=== PATIENT | female | born 1990 | race Caucasian/White ===

== ENCOUNTER 2018-05-18 15:09 | Outpatient (CLI) | payer OTHER | END 2018-05-18 23:59 | disposition home or self-care (01) | LOC: LAB.R 15:09 | PROVIDERS: ATTEND Registered Nurse | DX: Z00.00 Encounter for general adult medical examination without abnormal findings (principal) | CPT/HCPCS: 87491; 87591 ==

== ENCOUNTER 2018-05-26 17:47 | Outpatient (CLI) | payer OTHER ==
--- NOTE | 2018-05-27 08:56 | Ultrasound Report ---
Reason: TEST POSITIVE Procedure Date: 05/26/2018 Accession Number: [id number] / [id number] Procedure: US - OB First Trimester CPT Code: FULL RESULT: EXAM: FIRST TRIMESTER OBSTETRIC ULTRASOUND (Less than 11 weeks) EXAM DATE: 05/26/2018 06:25 PM. CLINICAL HISTORY: TEST POSITIVE. Assessed dates LMP: 04/03/2018. COMPARISONS: None. TECHNIQUE: Transabdominal ultrasound examination with static image documentation. CLINICAL DATES: EGA 7 weeks 4 days with ELIZABETH 01/08/2019 based on LMP. ASSESSMENT: Gestational Sac: Single intrauterine. Embryo: CRL (crown-rump length) 10.6 mm = 7 weeks 1 day. Cardiac activity: 163 beats per minute. Yolk sac: 4.4 mm. Amniotic fluid: Not accurately assessed at this gestational age. Early placenta: Not visible at this gestational age. Other: No perigestational fluid collection demonstrated. MATERNAL STRUCTURES: Uterus: Anteverted/Retroverted. Unremarkable. Cervix: Closed. Right Ovary/Adnexa: The ovary measures 3.3 x 2.1 x 2.4 cm, volume 8.6 cc. Unremarkable. Left Ovary/Adnexa: The ovary measures 2.7 x 1.7 x 1.6 cm, volume 3.8 cc. Unremarkable. Free Fluid: None. Other: None. IMPRESSION: 1. Single viable intrauterine at EGA 7 weeks 1 day with ELIZABETH 01/11/2019 based on crown-rump length, which is Concordant with clinical dates. 2. Assigned dating is ELIZABETH 01/08/2019 based on LMP. JOYCELYN
== END 2018-05-26 17:48 | disposition home or self-care (01) ==
LOC: DI 17:47
PROVIDERS: ATTEND Registered Nurse
DX: Z32.01 Encounter for pregnancy test, result positive (principal)
CPT/HCPCS: 76801

== ENCOUNTER 2018-06-26 13:17 | Outpatient (CLI) | payer OTHER ==
[2018-06-24 14:16] LABS: MUDS CUTOFF CONCENTRATIONS CUTOFF CONC BELOW:
[2018-06-24 14:44] LABS: AMPHETAMINE SCREEN,URINE NEGATIVE (NEGATIVE); BENZODIAZEPINES SCREEN, URINE NEGATIVE (NEGATIVE); COCAINE SCREEN URINE NEGATIVE (NEGATIVE); METHADONE SCREEN, URINE NEGATIVE (NEGATIVE); METHAMPHETAMINES SCREEN, URINE NEGATIVE (NEGATIVE); OPIATE SCREEN, URINE NEGATIVE (NEGATIVE); OXYCODONE SCREEN, URINE NEGATIVE (NEGATIVE); PROPOXYPHENE SCREEN, URINE NEGATIVE (NEGATIVE); TRICYCLIC ANTIDEPRESSANT,URINE NEGATIVE (NEGATIVE)
== END 2018-06-26 23:59 | disposition home or self-care (01) ==
LOC: LAB.R 13:17
PROVIDERS: ATTEND Registered Nurse
DX: Z34.90 Encounter for supervision of normal pregnancy, unspecified, unspecified trimester (principal)
CPT/HCPCS: 80306

== ENCOUNTER 2018-06-29 12:19 | Outpatient (CLI) | payer OTHER ==
[2018-06-29 12:57] LABS: BILIRUBIN,URINE NEGATIVE (NEGATIVE); GLUCOSE, URINE (UA) NEGATIVE (NEGATIVE); KETONES,URINE (UA) NEGATIVE (NEGATIVE); LEUKOCYTE ESTERASE, URINE NEGATIVE (NEGATIVE); NITRITE,URINE NEGATIVE (NEGATIVE); OCCULT BLOOD,URINE NEGATIVE (NEGATIVE); PH,URINE 6.5 PH (5.0-7.5); PROTEIN,URINE NEGATIVE (NEGATIVE); UROBILINOGEN,URINE 0.2 (NORMAL) E.U./dL (NORMAL)
[2018-06-29 13:03] LABS: CLARITY,URINE CLEAR (CLEAR)
[2018-06-29 14:01] LABS: BASOPHILS % (AUTO) 0.2 %; EOSINOPHILS # (AUTO) 0.1 10^3/uL (0.0-0.7); EOSINOPHILS % (AUTO) 1.4 %; HGB - HEMOGLOBIN 12.4 g/dL (12.0-16.0); LYMPHOCYTES # (AUTO) 2.6 10^3/uL (1.5-3.5); MEAN CORPUSCULAR HEMOGLOBIN 29.3 pg (27.0-31.0); MEAN CORPUSCULAR HGB CONC 33.6 g/dL (32.0-36.0); MEAN CORPUSCULAR VOLUME 87.3 fL (81.0-99.0); MONOCYTES # (AUTO) 0.5 10^3/uL (0.0-1.0); MONOCYTES % (AUTO) 5.3 %; NEUTROPHILS # (AUTO) 6.6 10^3/uL (1.5-6.6); NEUTROPHILS % (AUTO) 67.1 %; PLT - PLATELET COUNT 353 10^3/uL (130-450); RED BLOOD COUNT 4.24 10^6/uL (4.20-5.40); RED CELL DISTRIBUTION WIDTH 12.5 % (12.0-15.0); WHITE BLOOD COUNT 9.8 x10^3/uL (4.8-10.8)
[2018-06-29 14:26] LABS: HB2 TOTAL 13.5 g/dL; HEMOGLOBIN A1C 0.43 g/dL; HEMOGLOBIN A1C % 5.1 % (4.6-6.2)
[2018-06-29 14:42] LABS: BACTERIA,URINE None Seen /HPF (None Seen); RBC,URINE None Seen /HPF (0-5); SQUAMOUS EPITHELIAL CELL,UR FEW Squamous (<= Few)
[2018-06-30 12:42] LABS: HEPATITIS B SURFACE ANTIGEN NON-REACTIVE (NON-REACTIVE); HEPATITIS C ANTIBODY NON-REACTIVE (NON-REACTIVE)
[2018-06-30 13:21] LABS: HIV AG/AB 4TH GEN NON-REACTIVE (NON-REACTIVE)
== END 2018-06-29 12:20 | disposition home or self-care (01) ==
LOC: LAB 12:19
PROVIDERS: ATTEND Registered Nurse
DX: Z34.90 Encounter for supervision of normal pregnancy, unspecified, unspecified trimester (principal)
CPT/HCPCS: 36415; 81001; 81599; 82950; 83036; 85025; 86762; 86803; 86850; 86900; 86901; 87086; 87340; 87389

== ENCOUNTER 2018-08-20 13:34 | Outpatient (CLI) | payer OTHER ==
--- NOTE | 2018-08-21 12:25 | Ultrasound Report ---
Reason: ENCOUNTER FOR OTHER SPECIFIED SCREENING Procedure Date: 08/20/2018 Accession Number: [id number] / [id number] Procedure: US - OB Detailed Eval CPT Code: FULL RESULT: EXAM: COMPLETE OBSTETRICAL ULTRASOUND EXAM DATE: 08/20/2018 02:50 PM. CLINICAL HISTORY: anatomic survey. COMPARISON: 05/26/2018. TECHNIQUE: Real-time sonographic evaluation of the fetus performed by the ged instructor. Multiple medical office representative static images were saved for review. DATING: Established EGA 19 weeks 6 days with ELIZABETH 01/08/2019 based on LMP. EGA 20 weeks 2 days with ELIZABETH 01/05/2019 based on the current ultrasound. GENERAL EVALUATION Davis . Cardiac activity: 152 bpm. movement: Visualized. Presentation: Cephalic. Placenta: Anterior position. No evidence for previa. Umbilical cord: 3 vessel cord. Central placental cord origin. Amniotic fluid: Subjectively normal, NAHEED 11.3 cm MVP 3.4 cm. BIOMETRY Bi-Parietal Diameter (BPD): 4.8 cm, 20 weeks 2 days Head Circumference (HC): 18 cm, 20 weeks 2 days Abdominal Circumference (AC): 15.6 cm, 20 weeks 5 days Femur Length (FL): 3.3 cm, 20 weeks 1 day Estimated Weight: 356 g, 77th percentile for 19 weeks 6 days. ANATOMY The intracranial structures, profile, face/nose/lips, spine, 4 chamber heart and outflow tracts, stomach, abdominal wall and cord insertion, diaphragm, kidneys, bladder, and extremities were visualized and demonstrate no abnormality. MATERNAL STRUCTURES Uterus: Unremarkable. Cervix: Long and closed. Transabdominal length 4.6 cm. Right ovary/adnexa: Unremarkable. Left ovary/adnexa: Unremarkable. Free fluid: None. IMPRESSION: 1. Davis live intrauterine with gestational age 19 weeks 6 days based on LMP. 2. Estimated weight is within expected limits for assigned dating. 3. Normal anatomic survey. No anatomic abnormalities are detected at this time. RADIA
== END 2018-08-20 13:35 | disposition home or self-care (01) ==
LOC: DI 13:34
PROVIDERS: ATTEND Nurse Practitioner Obstetrics & Gynecology
DX: Z36.89 Encounter for other specified antenatal screening (principal)
CPT/HCPCS: 76811

== ENCOUNTER 2018-09-01 08:00 | Outpatient (CLI) | payer OTHER | END 2018-09-01 08:01 | disposition home or self-care (01) | LOC: LAB.R 08:00 | PROVIDERS: ATTEND Nurse Practitioner Obstetrics & Gynecology | DX: R82.79 Other abnormal findings on microbiological examination of urine (principal) | CPT/HCPCS: 87086 ==

== ENCOUNTER 2018-10-01 13:56 | Outpatient (CLI) | payer OTHER | END 2018-10-01 23:59 | disposition home or self-care (01) | LOC: LAB.R 13:56 | PROVIDERS: ATTEND Registered Nurse | DX: R82.998 Other abnormal findings in urine (principal) | CPT/HCPCS: 87086 ==

== ENCOUNTER 2018-10-21 08:51 | Outpatient (CLI) | payer OTHER ==
[2018-10-21 10:32] LABS: HGB - HEMOGLOBIN 11.3 g/dL (12.0-16.0); MEAN CORPUSCULAR HEMOGLOBIN 28.4 pg (27.0-31.0); MEAN CORPUSCULAR HGB CONC 33.4 g/dL (32.0-36.0); MEAN PLATELET VOLUME 7.2 fL (7.9-10.8); RED BLOOD COUNT 3.98 10^6/uL (4.20-5.40); RED CELL DISTRIBUTION WIDTH 13.9 % (12.0-15.0); WHITE BLOOD COUNT 9.6 x10^3/uL (4.8-10.8)
== END 2018-10-21 08:52 | disposition home or self-care (01) ==
LOC: LAB 08:51
PROVIDERS: ATTEND Registered Nurse
DX: Z34.90 Encounter for supervision of normal pregnancy, unspecified, unspecified trimester (principal); R82.998 Other abnormal findings in urine
CPT/HCPCS: 36415; 82950; 85027; 86850; 87086

== ENCOUNTER 2018-10-23 07:59 | Outpatient (CLI) | payer OTHER | END 2018-10-23 08:00 | disposition home or self-care (01) | LOC: LAB 07:59 | PROVIDERS: ATTEND Nurse Practitioner Obstetrics & Gynecology | DX: O99.810 Abnormal glucose complicating pregnancy (principal) | CPT/HCPCS: 36415; 82951; 82952 ==

== ENCOUNTER 2018-11-18 13:50 | Outpatient (CLI) | payer OTHER ==
[2018-11-18 14:04] VITALS: BP 122/68
--- NOTE | 2018-11-18 17:59 | PROVIDER PROGRESS NOTE ---
- HPI Chief Complaint: Other Current : Current EDU 01/08/19 Gestation 32 Weeks and 5 Days 2 Para 0 Vital Signs Temperature 36.7 C 11/18/18 14:03 Heart Rate 110 H 11/18/18 14:03 Respiratory Rate 18 11/18/18 14:03 Blood Pressure 122/68 11/18/18 14:03 O2 Saturation 99 11/18/18 14:03 Temperature 36.7 C 11/18/18 14:03 Heart Rate 110 H 11/18/18 14:03 Respiratory Rate 18 11/18/18 14:03 Blood Pressure 122/68 11/18/18 14:03 O2 Saturation 99 11/18/18 14:03 - Exam Sekou presents today with c/o new onset dizziness and for the past several hours and generally not feeling well. She denies VB, Lof, or contractions. Reports +FM. Her BP is WNL. Her heart rate was slightly elevated upon arrival but did slow down prior to leaving. NST reactive. Baseline 140's, moderate variability, + accels, no decels Pt advised to increase her fluid intake and rest. She was released home with precautions. FINAL DIAGNOSIS: Dizziness in , third trimester - Procedures OB Procedure Performed: NST Diagnosis/Indication for NST: Other NST Procedure: NST Procedure Start Date 11/18/18 Start Time 13:57 Stop Time 14:25 Vibroacoustic Stimulation Used No Patient States Movement Yes Service Date of procedure: 11/18/18
--- NOTE | 2018-11-18 23:15 | Labor Flowsheet ---
Labor Flowsheet Datetime Report Generated by CPN: 11/18/2018 23:15 Datetime: 11/18/2018 21:48 Pulse: 87 SpO2 (%): 98 Datetime: 11/18/2018 21:13 VITAL SIGNS NBP Sys/Ashwini/Mean (mmHg): 103 : 67 : 76 Datetime: 11/18/2018 21:06 ASSESSMENT A Comments: this FHR and contraction tracing doesn't belong to this patient as another pt's tracing w as recorded under this pt's name.
== END 2018-11-18 14:35 | disposition home or self-care (01) ==
LOC: LAB 13:50 → FBP 13:51 → LAB 14:35
PROVIDERS: ATTEND Nurse Practitioner Obstetrics & Gynecology
DX: O26.893 Other specified pregnancy related conditions, third trimester (principal); R00.0 Tachycardia, unspecified; Z3A.32 32 weeks gestation of pregnancy
CPT/HCPCS: 59025

== ENCOUNTER 2018-12-09 15:06 | Outpatient (CLI) | payer OTHER ==
[2018-12-09 15:34] VITALS: BP 127/76
[2018-12-09] MEDS: LACTATED RINGERS 1,000 ML IV ONE (15:58)
[2018-12-09] MEDS: TERBUTALINE 1 MG/ML VIAL SUBQ ONE ×2 (16:09→17:50)
[2018-12-09 16:26] LABS: RUPTURE OF MEMBRANES PLUS NEGATIVE (NEGATIVE)
[2018-12-09] MEDS: ONDANSETRON 4 MG/2 ML VIAL IVP PRN (16:37)
[2018-12-09] MEDS ORDERED: PROMETHAZINE INJ 25 MG in SODIUM CHLORIDE 0.9% 50 ML IV ONE (18:00)
[2018-12-09 18:09] LABS: BILIRUBIN,URINE NEGATIVE (NEGATIVE); GLUCOSE, URINE (UA) NEGATIVE (NEGATIVE); KETONES,URINE (UA) >=80 mg/dL (NEGATIVE); LEUKOCYTE ESTERASE, URINE NEGATIVE (NEGATIVE); NITRITE,URINE POSITIVE (NEGATIVE); OCCULT BLOOD,URINE NEGATIVE (NEGATIVE); PH,URINE 6.5 PH (5.0-7.5); PROTEIN,URINE NEGATIVE (NEGATIVE); UROBILINOGEN,URINE 0.2 (NORMAL) E.U./dL (NORMAL)
[2018-12-09 18:20] LABS: CLARITY,URINE HAZY (CLEAR); RBC,URINE None Seen /HPF (0-5)
[2018-12-09 18:21] LABS: AMORPHOUS SEDIMENT,UR Marked /LPF; BACTERIA,URINE Rare /HPF (None Seen); SQUAMOUS EPITHELIAL CELL,UR MOD Squamous (<= Few)
[2018-12-09] MEDS ORDERED: PROMETHAZINE 25 MG/1 ML VIAL IM PRN (19:40)
[2018-12-09] MEDS ORDERED: SIMETHICONE CHEW 80 MG TABLET PO ONE (20:10)
[2018-12-09] MEDS ORDERED: SODIUM CHLORIDE FLUSH 0.9% 10 ML SYRINGE ONE (20:57)
[2018-12-10] MEDS: SIMETHICONE CHEW 80 MG TABLET PO ONE (03:31)
--- NOTE | 2018-12-11 17:55 | PROVIDER PROGRESS NOTE ---
- HPI Chief Complaint: GI symptoms Current : Current EDU 01/08/19 Gestation 35 Weeks and 5 Days 2 Para 2 Vital Signs Temperature 37.0 C 12/09/18 15:17 Heart Rate 104 H 12/09/18 15:17 Respiratory Rate 20 12/09/18 15:17 Blood Pressure 127/76 12/09/18 15:17 O2 Saturation 99 12/09/18 15:17 Temperature 37.0 C 12/09/18 18:11 Heart Rate 104 H 12/09/18 15:17 Respiratory Rate 20 12/09/18 15:17 Blood Pressure 127/76 12/09/18 15:17 O2 Saturation 99 12/09/18 15:17 - Exam 12/09/2018: Sekou presents to [facility] triage with c/o contractions every 3-5 minutes lasting 1-2 minutes. She feels like the contraction pains are coming in waves. Upon arrival she reports nausea without vomiting. She denies vaginal bleeding but reports increased in water discharge and she is unclear if it could be amniotic fluid. She reports +FM. Reports regular bowel movement this morning and denies constipation or diarrhea. Has only had a cesaer salad to eat today and she did call her friend who ate the same thing and she is feeling fine. She denies urinary symptoms. Denies fevers, chills, body aches. Denies vaginal irritation or burning. She feels she is adequately hydrated and has been drinking a 60+ ounces of water daily with today being no exception. Upon arrival her cervix was noted to be closed/thick/high, posterior, vertex. FHR baseline 140s, moderate variability, + accels, no decels Contractions not palpable and are unable to be appreciated via tocometry. When patient appreciates peak of painful contraction her abdomen is entirely soft. BP WNL, Afebrile Terbutaline 0.25mg administered in attempt to stop her contractions and IV started for 500mL fluid bolus of LR. Following administration of terbutaline, patient experienced increased nausea and began vomiting. Zofran 4mg administered via IV with little relief. Repeat dose improved nausea. Continued monitoring reveals FHR Category II and rare contractions appreciated via tocometry. Uterus continues to palpate soft throughout contractions. ROM plus collected - NEGATIVE Rapid GBS collected - NEGATIVE UA - NEGATIVE Repeat SVE 2 hours after initial check - unchanged despite continued pain. Additional monitoring x 2 hours - repeat SVE unchanged. Simethicone administered PO and patient placed in hands and knees position with some relief. Plan: Patient released home with precautions. Advised continued fluid intake and return if she is unable to keep anything down. Pt has routine OB appt 12/11/2018 - advised her to keep this appt and return sooner PRN. Advised bland diet/BRAT diet tomorrow and advised her to take tomorrow off from work to promote rest and recovery. Pt and both verbalized understanding and agree to the above plan. They deny further questions or concerns at this time. FINAL DIAGNOSIS: Gastroenteritis - Procedures OB Procedure Performed: NST Diagnosis/Indication for NST: labor NST Procedure: NST Procedure Start Time 13:57 Stop Time 14:25 Service Date of procedure: 12/09/18 Procedure Details: NST reactive. Baseline 140s, moderate variability, + accels, no decels Rare contraction via tocometry
== END 2018-12-09 20:42 | disposition home or self-care (01) ==
LOC: WFO 15:06 → FBP 15:07 → WFO 20:42
PROVIDERS: ATTEND Nurse Practitioner Obstetrics & Gynecology
DX: O99.613 Diseases of the digestive system complicating pregnancy, third trimester (principal); K52.9 Noninfective gastroenteritis and colitis, unspecified; Z3A.35 35 weeks gestation of pregnancy
CPT/HCPCS: 81001; 84112; 87797; 99213; A9270; 81003; 87086

== ENCOUNTER 2018-12-11 | Outpatient (CLI) | payer OTHER | END 2018-12-11 23:59 | disposition home or self-care (01) | DX: Z11.3 Encounter for screening for infections with a predominantly sexual mode of transmission (principal) ==

== ENCOUNTER 2018-12-13 14:03 | Inpatient (IN) | payer OTHER ==
[2018-12-13 15:05] LABS: BILIRUBIN,URINE NEGATIVE (NEGATIVE); GLUCOSE, URINE (UA) NEGATIVE (NEGATIVE); KETONES,URINE (UA) 15 mg/dL (NEGATIVE); LEUKOCYTE ESTERASE, URINE NEGATIVE (NEGATIVE); NITRITE,URINE NEGATIVE (NEGATIVE); OCCULT BLOOD,URINE NEGATIVE (NEGATIVE); PROTEIN,URINE NEGATIVE (NEGATIVE); UROBILINOGEN,URINE 0.2 (NORMAL) E.U./dL (NORMAL)
[2018-12-13 15:07] LABS: CLARITY,URINE CLEAR (CLEAR)
[2018-12-13 15:09] LABS: BASOPHILS % (AUTO) 0.3 %; EOSINOPHILS % (AUTO) 0.2 %; HGB - HEMOGLOBIN 11.6 g/dL (12.0-16.0); LYMPHOCYTES # (AUTO) 1.7 10^3/uL (1.5-3.5); MEAN CORPUSCULAR HEMOGLOBIN 27.7 pg (27.0-31.0); MEAN CORPUSCULAR HGB CONC 32.3 g/dL (32.0-36.0); MEAN CORPUSCULAR VOLUME 85.7 fL (81.0-99.0); MEAN PLATELET VOLUME 9.5 fL (7.9-10.8); MONOCYTES # (AUTO) 0.7 10^3/uL (0.0-1.0); MONOCYTES % (AUTO) 5.6 %; NEUTROPHILS # (AUTO) 10.4 10^3/uL (1.5-6.6); NEUTROPHILS % (AUTO) 79.8 %; PLT - PLATELET COUNT 262 10^3/uL (130-450); RED BLOOD COUNT 4.19 10^6/uL (4.20-5.40); RED CELL DISTRIBUTION WIDTH 14.2 % (12.0-15.0)
[2018-12-13] MEDS ORDERED: SODIUM CHLORIDE FLUSH 0.9% 10 ML SYRINGE ONE ×2 (15:57→16:27)
[2018-12-13] MEDS ORDERED: LACTATED RINGERS 1,000 ML IV SCH (16:00)
[2018-12-13] MEDS: fentaNYL 100 MCG/2 ML VIAL IVP PRN ×4 (16:09→23:00)
[2018-12-13] MEDS: ONDANSETRON 4 MG/2 ML VIAL IVP PRN ×2 (16:22→23:44)
[2018-12-13 16:25] LABS: ALBUMIN 3.1 g/dL (3.2-5.5); ALBUMIN/GLOBULIN RATIO 0.8 (1.0-2.2); BILIRUBIN,TOTAL 0.5 mg/dL (0.2-1.0); CALCIUM 9.3 mg/dL (8.5-10.3); CREATININE 0.5 mg/dL (0.4-1.0); TOTAL PROTEIN 7.2 g/dL (6.7-8.2)
[2018-12-13] MEDS: HYDROmorphone 2 MG/ML VIAL IVP PRN ×3 (16:53→23:44)
--- NOTE | 2018-12-13 18:21 | CT Report ---
Reason: accute right sided abdominal pain Procedure Date: 12/13/2018 Accession Number: [id number] / [id number] Procedure: CT - Abdomen/Pelvis WO CPT Code: FULL RESULT: EXAM: CT ABDOMEN AND PELVIS EXAM DATE: 12/13/2018 04:34 PM. CLINICAL HISTORY: Acute right-sided abdominal pain. COMPARISONS: None. TECHNIQUE: Routine helical CT imaging was performed through the abdomen and pelvis. IV contrast: None. Enteric contrast: None. Reconstructions: Coronal and sagittal. In accordance with CT protocol optimization, one or more of the following dose reduction techniques were utilized for this exam: automated exposure control, adjustment of mA and/or KV based on patient size, or use of iterative reconstructive technique. FINDINGS: Lung Bases: Clear. Liver: Unremarkable noncontrast appearance. Gallbladder/Bile Ducts: Unremarkable. No visualized stones or biliary ductal dilatation. Spleen: Normal size. No contour deforming mass. Pancreas: No contour deforming mass or ductal dilatation. Adrenal Glands: Normal. Kidneys and Ureters: Mild right hydronephrosis. Two tiny intrarenal calculi in the left upper pole, the larger 2-3 mm (3/27 and 29). Tiny 1-2 mm intrarenal calculus in the right lower pole ( 3/37). No left hydronephrosis. Peritoneal Cavity/Bowel: Incompletely imaged tubular structure adjacent to the cecum with adjacent inflammatory fat stranding, 12 mm in diameter (3/85), separate from the terminal ileum; evaluation is limited in the absence of intravenous or enteric contrast and due to mass-effect of the gravid uterus on adjacent decompressed bowel loops. No free fluid or pneumoperitoneum. Pelvic Organs: Single intrauterine in cephalic presentation. This exam is not intended to evaluate the fetus. Anterior placenta without evidence of previa. The ovaries are not well-seen on this noncontrast examination. Vasculature: Unremarkable. Bones: T12-L3 limbus vertebrae. No acute bony abnormality. Other: None. IMPRESSION: 1. Pericecal inflammatory changes. Findings are highly suspicious for appendicitis, however, diagnostic certainty is limited by the technical limitations of noncontrast CT. Recommend noncontrast MRI abdomen/pelvis for further evaluation. Also recommend pelvic ultrasound with Dopplers to visualize ovaries and confirm ovarian blood flow. 2. Mild right hydronephrosis, not unusual during the third trimester of . 3. Tiny nonobstructive bilateral intrarenal calculi. RADIA The call report notification system was initiated by Dr. Mally Brar at 06:01 PM on 12/13/2018. The above call report findings were discussed with Christiano Sun by Dr. Mally Brar at 06:08 PM on 12/13/2018.
--- NOTE | 2018-12-13 20:03 | Ultrasound Report ---
Reason: acute rightsided abdominal and flank pain Procedure Date: 12/13/2018 Accession Number: [id number] / [id number] Procedure: US - OB Limited CPT Code: FULL RESULT: EXAM: LIMITED OBSTETRICAL ULTRASOUND EXAM DATE: 12/13/2018 06:30 PM. CLINICAL HISTORY: Acute rightsided abdominal and flank pain. COMPARISON: ABDOMEN/PELVIS W/O 12/13/2018 5:09 PM. TECHNIQUE: Real-time sonographic evaluation of the fetus performed by the outdoor power equipment mechanic. Multiple appliance service representative static images were saved for review. DATING: Established EGA 36 weeks 2 days with ELIZABETH 01/08/2019. GENERAL EVALUATION Davis . Cardiac activity: 128 bpm. movement: Visualized. Presentation: Cephalic. Placenta: Anterior position. No evidence of abruption. No previa. Amniotic fluid: Normal. NAHEED 22 cm. MVP 6.9 cm. MATERNAL STRUCTURES Several images were obtained of the right lower quadrant of the abdomen. There is nonspecific hypoechoic avascular material in the right lower quadrant. Uncertain if this is material within the lumen of bowel or the peritoneal cavity. An appendix is not visualized. IMPRESSION: 1. Single live intrauterine fetus with cardiac activity, normal amniotic fluid volume and no evidence of placenta previa or abruption. 2. Nonspecific findings in the right lower quadrant of the abdomen. An appendix is not visualized. RADIA
[2018-12-13] MEDS ORDERED: PROPOFOL 200 MG/20 ML VIAL IVP ONE (20:05)
[2018-12-13] MEDS ORDERED: fentaNYL 100 MCG/2 ML VIAL IVP ONE (20:05)
[2018-12-13] MEDS ORDERED: ROCURONIUM 50 MG/5 ML VIAL IVP ONE (20:05)
[2018-12-13] MEDS ORDERED: ONDANSETRON 4 MG/2 ML VIAL IVP ONE (20:05)
[2018-12-13] MEDS ORDERED: SUCCINYLCHOLINE 200 MG/10 ML VIAL IVP ONE (20:05)
[2018-12-13] MEDS ORDERED: NEOSTIGMINE 1 MG/1 ML 10 ML MDV IVP ONE (20:05)
[2018-12-13] MEDS ORDERED: DEXAMETHASONE 4 MG/ML VIAL IVP ONE (20:05)
[2018-12-13] MEDS ORDERED: GLYCOPYRROLATE 1 MG/5 ML VIAL IVP ONE (20:05)
[2018-12-13] MEDS ORDERED: HYDROmorphone 2 MG/ML VIAL IVP ONE (20:08)
--- NOTE | 2018-12-13 20:33 | CONSULTATION NOTE ---
Referring Provider Name of Referring Provider:: Dr. Christiano Sun Consult Date: 12/13/18 Chief Complaint - Chief Complaint Chief Complaint: RLQ pain in 36 week female suspicious for appendicitis History of Present Illness - Admitted From Admitted From:: I do not know - History Obtained From Records Reviewed: Yes. History obtained from: Patient in chart. Exam Limitations: None. - History of Present Illness HPI Comment/Other: Dr. Alvarado came asked that I see this very pleasant 28-year-old 36-week female for evaluation and treatment of likely appendicitis. The patient's symptoms started on evening. She did initially have some nausea and vomiting that was felt to be related to the terbutaline that she received to treat premature contractions. The pain did not nannette but instead worsened and today was the worst pain. She did have one episode of vomiting today but there is been no persistent nausea. There is been no hematemesis, melena, or hematochezia. The but the pain is described to be on her far right side lateral to the umbilicus. 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 denies: Rectal bleeding, Black stools, Bloody stools - Integumentary Integumentary: denies: Rash Exam - Vital Signs Reviewed Vital Signs: Yes Vital Signs: Vital Signs x48h Temp Pulse Resp BP BP Pulse Ox 12/13/18 19:30 36.7 C 70 16 120/64 100 12/13/18 17:25 36.9 C 87 16 114/57 L 96 12/13/18 14:19 36.2 C L 94 17 123/75 98 - Physical Exam General Appearance: positive: Mild distress (Having occasional contractions as well as worsening of the pain.) Eyes Bilateral: positive: No lid inflammation, Conjunctivae nml, No scleral icterus ENT: positive: Dry mucous membranes Neck: positive: Trachea midline Respiratory: positive: Chest non-tender, No respiratory distress, Breath sounds nml Cardiovascular: positive: Regular rate & rhythm, No murmur, No gallop Abdomen: positive: Tenderness (In the right lower quadrant and worsened with manipulation of the left lower quadrant.), Abnml bowel sounds (Decreased.) Back: positive: Nml inspection Extremities: positive: Non-tender, Nml appearance Neurologic/Psychiatric: positive: Oriented x3, Motor nml, Sensation nml, Mood/affect nml Conclusion/Plan - Diagnosis Diagnosis: Likely acute appendicitis - Plan Plan: Open appendectomy. The patient's gravid state precludes laparoscopy. Please note that this was all done in the presence of her . The indications, procedure, alternatives including no surgery, possible risks including infection (deep or superficial), bleeding requiring transfusion (with all of its risks), and were fully explained to the patient and all questions answered. I explained that following the surgery I did not want her lifting anything over 15 pounds for 6 weeks to allow for optimal healing and to decrease the likelihood that a hernia would occur. All questions were fully answered. Verbal and written consent was obtained. The patient, in preparation for surgery will be nothing by mouth, and receive 3.375 g of Zosyn with induction. I asked her to contact me with any surgical questions and her concerns and she stated that she would. I asked her to let me know if there is any way we can make her stay at [facility] more comfortable and she stated that she would let me know. 45 minutes of [id number] time spent with the patient, the majority of which was spent in discussion, coordination of care, and completion of the requisite paperwork Dragon disclaimer: This document was created in part using voice recognition technology. Because of the inherent limitations of the system ([employer] Dictate user manual states that the licensee understands that speech recognition is a statistical process and that recognition errors are inherent in the process), occasional same sounding word substitutions and grammatical errors do occur and persist despite proofreading. Please read this document for context. - Lab Results Lab results reviewed: Yes Fish Bones: 12/13/18 14:57 12/13/18 16:05 - Diagnostic Imaging Results Diagnostic Imaging Results: positive: Final report reviewed, Read independently
--- NOTE | 2018-12-13 20:41 | ANESTHESIA ---
Pre-Anesthesia VS, & Labs - Diagnosis appendicitis - Procedure open appendectomy Vital Signs: Temp Pulse Resp BP Pulse Ox 36.7 C 70 16 120/64 100 12/13/18 19:30 12/13/18 19:30 12/13/18 19:30 12/13/18 19:30 12/13/18 19:30 Height 5 ft Weight (kg) 92.5 kg - NPO >8 hours - Is Patient ?: Yes - Lab Results Current Lab Results: Laboratory Tests 12/13/18 16:05: C-Reactive Protein 7.3 H 12/13/18 16:05: Sodium 134 L, Potassium 4.4, Chloride 104, Carbon Dioxide 17 L, Anion Gap 13.0, BUN 8, Creatinine 0.5, Estimated GFR (MDRD) 149, Glucose 89, Calcium 9.3, Total Bilirubin 0.5, AST 19, ALT 11, Alkaline Phosphatase 102, Total Protein 7.2, Albumin 3.1 L, Globulin 4.1, Albumin/Globulin Ratio 0.8 L, Amylase 67, Lipase 32 12/13/18 14:57: WBC 13.0 H, RBC 4.19 L, Hgb 11.6 L, Hct 35.9 L, MCV 85.7, MCH 27.7, MCHC 32.3, RDW 14.2, Plt Count 262, MPV 9.5, Neut # (Auto) 10.4 H, Lymph # (Auto) 1.7, [place] # (Auto) 0.7, Eos # (Auto) 0.0, Baso # (Auto) 0.0, Absolute Nucleated RBC 0.00, Nucleated RBC % 0.0 Lab results reviewed: Yes Fish Bones: 12/13/18 14:57 12/13/18 16:05 Home Medications and Allergies Active Medications Fentanyl (Fentanyl) 100 mcg IVP Q2HR PRN PRN Reason: PAIN Hydromorphone HCl (Dilaudid (Vial)) 2 mg IVP Q2H PRN PRN Reason: PAIN Last Admin: 12/13/18 19:00 Dose: 2 mg Lactated Ringer's (Lr) 1,000 mls @ 150 mls/hr IV .[id number] ALHAJI Last Admin: 12/13/18 16:04 Dose: 150 mls/hr Ondansetron HCl (Zofran Inj) 4 mg IVP Q6HR PRN PRN Reason: Nausea / Vomiting Last Admin: 12/13/18 16:22 Dose: 4 mg Sodium Chloride (Normal Saline Flush 0.9%) 10 ml IVP PRN PRN PRN Reason: NEEDED PER PROVIDER ORDERS Allergies/Adverse Reactions: Allergies Allergy/AdvReac Type Severity Reaction Status Date / Time No Known Drug Allergies Allergy Verified 12/13/18 15:40 Anes History & Medical History - Anesthetic History Anesthesia Complications: reports: No previous complications Family history of Anesthesia Complications: Denies Family history of Malignant Hyperthermia: Denies - Medical History Cardiovascular: reports: None Pulmonary: reports: None Gastrointestinal: reports: None Urinary: reports: None Neuro: reports: None Musculoskeletal: reports: None Endocrine/Autoimmune: reports: None Skin: reports: None Smoking Status: Never smoker Exam General: Alert, Oriented x3 Dental: WNL Mouth Openin Fingerbreadth Neck Mobility: Normal Mallampati classification: II Thyromental Distance: 4-6 cm Respiratory: Lungs clear, Normal breath sounds Cardiovascular: Regular rate Mental/Cognitive Status: Alert/Oriented X3 Cognitive Status: Within normal limits Plan Anesthesia Type: General Consent for Procedure(s) Verified and Reviewed: Yes Code Status: Attempt Resuscitation ASA classification: 2-Mild systemic disease Is this case an emergency?: Yes
[2018-12-13] MEDS ORDERED: BUPIVACAINE 0.5% PF 10 ML VIAL ONE (20:42)
[2018-12-13] MEDS ORDERED: LACTATED RINGERS 400 ML IV ONE (21:07)
[2018-12-13] MEDS ORDERED: LACTATED RINGERS 1,000 ML IV ONE (21:49)
[2018-12-13] MEDS ORDERED: SODIUM CHLORIDE FLUSH 0.9% 10 ML SYRINGE IVP PRN (22:30)
--- NOTE | 2018-12-13 22:41 | OPERATIVE REPORT ---
Operative Report - General Admit Date: 12/13/18 Procedure Date: 12/13/18 Planned Procedure: Appendectomy Pre-Op Diagnosis: Acute appendicitis Procedure Performed: Appendectomy (gravid patient) Post Op Diagnosis: Acute appendicitis - Procedure Note Primary Surgeon: Miguel Angel White MD Secondary Surgeon: Christiano Sun MD Anesthesia Provider: Roberth Leo CRNA Anesthesia Technique: General ET tube, Local (30 mL of half percent Marcaine) IV Fluids (mL): 900 Estimated Blood Loss (mL): 10 Drain/Tube Type: Other (None.) Complications: None. - Other Other Information/Narrative: OPERATIVE DESCRIPTION/REPORT: After verbal and written informed consent was obtained detailing the risks of infection, bleeding requiring transfusion with its risks, nerve injury, and , and after I met with the patient confirming the surgery and the site of the surgery, the patient was brought to the operative suite and placed supine on the operating table. Great care was taken to avoid pressure points to prevent pressure necrosis or nerve injury. Monitoring devices were applied along with TEDs and pneumatic compressive stockings (to prevent DVT). The patient received preoperative antibiotics for surgical prophylaxis. [anesthesiologist] sedated and anesthetized the patient for the entire procedure. The patient was prepped and draped in the usual sterile manner. A "time in" then confirmed that the paitient was identified with 3 identifiers (name, date and medical record number), the history and physical was in the chart, the signed consent confirming the procedure was in the chart, the patient was in the correct position, the aforementioned prophylactic measures were in place or given, we had the correct personnel and equipment to complete the procedure and that anesthesia, surgery and nursing were given an opportunity to express any concerns. With the agreement of everyone in the room, we proceeded with the operation. The external oblique fascia was opened in the direction of its fibers. The muscle fibers were split and the internal oblique fascia was clearly seen. The fascia was incised in the direction of its fibers and the muscle fibers were split. Similarly the transversalis fascia was seen and incised in the direction of its fibers and its muscle fibers were split. In traversing these muscle layers none of the muscle fibers were cut. The peritoneum was then clearly seen and opened transversely using Metzenbaum scissors without incident. Entry was gained into the abdomen and there was some mild purulence noted. Digital examination of the abdomen revealed the appendix to be markedly thickened. This was brought to the skin level using a combination of [place] as well as digital manipulation. Please note that Dr. Sun provided the retraction for this entire case as the patient's gravid condition change location of the appendix and made visualization markedly more difficult. In addition the a ppendix was in a retrocecal position and again if it was not for the retraction provided by Dr. Sun this operation would have been much more difficult. The mesentery of the appendix was taken using sequential application of the LigaSure. This was taken to the base the appendix. The base the appendix was then clamped using a right angle clamp and the clamp was placed distally on the appendix to minimize any spillage. At this clamp site and 0 silk suture was used to tie the appendiceal base and the appendix was transected distal to this suture and the appendix delivered from the operative field. The stump was cauterized using Bovie electrocautery. The stump was not "dunked." The cecum and the appendiceal stump were placed back into the abdomen and the abdomen was copiously irrigated using warm sterile saline. The peritoneum was closed using 3-0 Vicryl in a running fashion. The fascia of the transversalis, and internal oblique were closed using interrupted 0 Vicryl sutures. The fascia of the external oblique was closed using a running 0 PDS. The fascial layers, subcutaneous tissue, and skin were injected using half percent Marcaine for long-term anesthetic control. The subcutaneous tissues were approximated using interrupted 2-0 Vicryl suture. The skin was approximated using a 4-0 Monocryl in a running subcuticular fashion. The skin was cleaned of its prep and the i ncision was also secured using Dermabond. At this point a time out was performed that confirmed that all the counts were correct, the procedure that was performed, the blood loss, the urine output, the IV fluids administered, and the patients condition. Having tolerated the procedure well, the patient was subsequently extubated and taken to recovery room in good and stable condition. Dragon disclaimer: This document was created in part using voice recognition technology. Because of the inherent limitations of the system ([employer]'s [employer] user manual states that the licensee understands that speech recognition is a statistical process and that recognition errors are inherent in the process), occasional same sounding word substitutions and grammatical errors do occur and persist despite proofreading. Please read this document for context.
[2018-12-13] MEDS ORDERED: fentaNYL 100 MCG/2 ML VIAL ONE (22:51)
[2018-12-13] MEDS: diphenhydrAMINE INJ 50 MG/ML VIAL ONE ×2 (22:52→23:05)
[2018-12-13] MEDS ORDERED: PIPERACILLIN/TAZOBACTAM 3.375 GM in SODIUM CHLORIDE 0.9% MINIBAG 100 ML IV SCH (23:00)
[2018-12-13] MEDS: TERBUTALINE 1 MG/ML VIAL SUBQ SCH (23:44)
[2018-12-14] MEDS: TERBUTALINE 1 MG/ML VIAL SUBQ SCH (00:59)
[2018-12-14] MEDS: LACTATED RINGERS 1,000 ML IV SCH ×3 (01:20→18:32)
[2018-12-14] MEDS ORDERED: PIPERACILLIN/TAZOBACTAM 3.375 GM in SODIUM CHLORIDE 0.9% MINIBAG 100 ML IV SCH (03:30)
[2018-12-14] MEDS: SODIUM CHLORIDE FLUSH 0.9% 10 ML SYRINGE IVP SCH (04:00)
[2018-12-14] MEDS: SODIUM CHLORIDE FLUSH 0.9% 10 ML SYRINGE IVP PRN (04:00)
[2018-12-14] MEDS: HYDROmorphone 2 MG/ML VIAL IVP PRN ×7 (04:00→21:48)
[2018-12-14 06:10] LABS: BASOPHILS % (AUTO) 0.1 %; HGB - HEMOGLOBIN 10.4 g/dL (12.0-16.0); LYMPHOCYTES # (AUTO) 1.6 10^3/uL (1.5-3.5); LYMPHOCYTES % (AUTO) 10.2 %; MEAN CORPUSCULAR HEMOGLOBIN 27.3 pg (27.0-31.0); MEAN CORPUSCULAR HGB CONC 31.5 g/dL (32.0-36.0); MEAN CORPUSCULAR VOLUME 86.6 fL (81.0-99.0); MEAN PLATELET VOLUME 9.5 fL (7.9-10.8); MONOCYTES # (AUTO) 0.8 10^3/uL (0.0-1.0); MONOCYTES % (AUTO) 5.2 %; NEUTROPHILS # (AUTO) 13.1 10^3/uL (1.5-6.6); NEUTROPHILS % (AUTO) 83.6 %; PLT - PLATELET COUNT 225 10^3/uL (130-450); RED BLOOD COUNT 3.81 10^6/uL (4.20-5.40); RED CELL DISTRIBUTION WIDTH 14.5 % (12.0-15.0); WHITE BLOOD COUNT 15.6 x10^3/uL (4.8-10.8)
--- NOTE | 2018-12-14 08:41 | PROVIDER PROGRESS NOTE ---
Subjective - General Admit Date: 12/13/18 Procedure Date: 12/13/18 Post Op Days: 1 Procedure Performed: Open Appendectomy - Review of Systems Wound/Incisions: positive: Healing well General: positive: No symptoms (Still C/O post op Pain. 09/18. not passing fletus. voiding. out of bed.) Pulmonary: positive: No symptoms, Shortness of breath Cardiovascular: positive: No symptoms Gastrointestinal: negative: Flatus Genitourinary: positive: No symptoms Objective - Patient Data Reviewed Vital Signs: Yes Vital Signs: Vital Signs x48h Temp Pulse Resp BP Pulse Ox 12/14/18 08:28 36.7 C 79 16 115/66 95 12/14/18 06:11 117 H 115/66 94 12/14/18 04:00 36.9 C 118 H 18 111/69 96 12/14/18 03:00 106/61 12/14/18 02:05 114/60 12/14/18 01:00 112 H 114/64 94 Weight: Weight 12/12/18 12/13/18 12/14/18 23:59 23:59 23:59 Weight (kg) 92.5 kg Intake & Output: Intake and Output Totals x24h 12/12/18 12/13/18 12/14/18 23:59 23:59 23:59 Intake Total 2100 Output Total 300 400 Balance -300 1700 - Lab Results Lab Results: 12/14/18 06:01 12/13/18 16:05 Other Lab Results: Lab Results x24hrs 12/14/18 12/13/18 12/13/18 Range/Units 06:01 16:05 16:05 WBC 15.6 H (4.8-10.8) x10^3/uL RBC 3.81 L (4.20-5.40) 10^6/uL Hgb 10.4 L (12.0-16.0) g/dL Hct 33.0 L (37.0-47.0) % MCV 86.6 (81.0-99.0) fL MCH 27.3 (27.0-31.0) pg MCHC 31.5 L (32.0-36.0) g/dL RDW 14.5 (12.0-15.0) % Plt Count 225 (130-450) 10^3/uL MPV 9.5 (7.9-10.8) fL Neut # (Auto) 13.1 H (1.5-6.6) 10^3/uL Lymph # (Auto) 1.6 (1.5-3.5) 10^3/uL [place] # (Auto) 0.8 (0.0-1.0) 10^3/uL Eos # (Auto) 0.0 (0.0-0.7) 10^3/uL Baso # (Auto) 0.0 (0.0-0.1) 10^3/uL Absolute Nucleated RBC 0.00 x10^3/uL Nucleated RBC % 0.0 /100WBC Sodium 134 L (135-145) mmol/L Potassium 4.4 (3.5-5.0) mmol/L Chloride 104 (101-111) mmol/L Carbon Dioxide 17 L (21-32) mmol/L Anion Gap 13.0 (6-13) BUN 8 (6-20) mg/dL Creatinine 0.5 (0.4-1.0) mg/dL Estimated GFR (MDRD) 149 (>89) Glucose 89 (70-100) mg/dL Calcium 9.3 (8.5-10.3) mg/dL Total Bilirubin 0.5 (0.2-1.0) mg/dL AST 19 (10-42) IU/L ALT 11 (10-60) IU/L Alkaline Phosphatase 102 (42-121) IU/L C-Reactive Protein 7.3 H (0-1.0) mg/dL Total Protein 7.2 (6.7-8.2) g/dL Albumin 3.1 L (3.2-5.5) g/dL Globulin 4.1 (2.1-4.2) g/dL Albumin/Globulin Ratio 0.8 L (1.0-2.2) Amylase 67 (28-100) U/L Lipase 32 (22-51) U/L Urine Color Urine Clarity (CLEAR) Urine pH (5.0-7.5) PH Ur Specific [place] (1.002-1.030) Urine Protein (NEGATIVE) mg/dL Urine Glucose (UA) (NEGATIVE) mg/dL Urine Ketones (NEGATIVE) mg/dL Urine Occult Blood (NEGATIVE) Urine Nitrite (NEGATIVE) Urine Bilirubin (NEGATIVE) Urine Urobilinogen (NORMAL) E.U./dL Ur Leukocyte Esterase (NEGATIVE) Ur Microscopic Review Urine Culture Comments 12/13/18 12/13/18 Range/Units 14:57 14:30 WBC 13.0 H (4.8-10.8) x10^3/uL RBC 4.19 L (4.20-5.40) 10^6/uL Hgb 11.6 L (12.0-16.0) g/dL Hct 35.9 L (37.0-47.0) % MCV 85.7 (81.0-99.0) fL MCH 27.7 (27.0-31.0) pg MCHC 32.3 (32.0-36.0) g/dL RDW 14.2 (12.0-15.0) % Plt Count 262 (130-450) 10^3/uL MPV 9.5 (7.9-10.8) fL Neut # (Auto) 10.4 H (1.5-6.6) 10^3/uL Lymph # (Auto) 1.7 (1.5-3.5) 10^3/uL [place] # (Auto) 0.7 (0.0-1.0) 10^3/uL Eos # (Auto) 0.0 (0.0-0.7) 10^3/uL Baso # (Auto) 0.0 (0.0-0.1) 10^3/uL Absolute Nucleated RBC 0.00 x10^3/uL Nucleated RBC % 0.0 /100WBC Sodium (135-145) mmol/L Potassium (3.5-5.0) mmol/L Chloride (101-111) mmol/L Carbon Dioxide (21-32) mmol/L Anion Gap (6-13) BUN (6-20) mg/dL Creatinine (0.4-1.0) mg/dL Estimated GFR (MDRD) (>89) Glucose (70-100) mg/dL Calcium (8.5-10.3) mg/dL Total Bilirubin (0.2-1.0) mg/dL AST (10-42) IU/L ALT (10-60) IU/L Alkaline Phosphatase (42-121) IU/L C-Reactive Protein (0-1.0) mg/dL Total Protein (6.7-8.2) g/dL Albumin (3.2-5.5) g/dL Globulin (2.1-4.2) g/dL Albumin/Globulin Ratio (1.0-2.2) Amylase (28-100) U/L Lipase (22-51) U/L Urine Color YELLOW Urine Clarity CLEAR (CLEAR) Urine pH 7.0 (5.0-7.5) PH Ur Specific [place] 1.020 (1.002-1.030) Urine Protein NEGATIVE (NEGATIVE) mg/dL Urine Glucose (UA) NEGATIVE (NEGATIVE) mg/dL Urine Ketones 15 H (NEGATIVE) mg/dL Urine Occult Blood NEGATIVE (NEGATIVE) Urine Nitrite NEGATIVE (NEGATIVE) Urine Bilirubin NEGATIVE (NEGATIVE) Urine Urobilinogen 0.2 (NORMAL) (NORMAL) E.U./dL Ur Leukocyte Esterase NEGATIVE (NEGATIVE) Ur Microscopic Review NOT INDICATED Urine Culture Comments NOT INDICATED - Imaging Results Radiology Imaging: positive: Final report received - Current Medications Current Medications: Current Medications Generic Name Dose Route Start Last Admin Trade Name Freq PRN Reason Stop Dose Admin Fentanyl 100 mcg 12/13/18 16:22 12/13/18 23:00 Fentanyl IVP 25 mcg Q2HR PRN Administration PAIN Hydromorphone HCl 2 mg 12/13/18 16:45 12/14/18 08:12 Dilaudid (Vial) IVP 2 mg Q2H PRN Administration PAIN Hydromorphone HCl 2 mg 12/13/18 22:40 12/14/18 06:03 Dilaudid (Vial) IVP 2 mg Q2H PRN Administration PAIN Ondansetron HCl 4 mg 12/13/18 16:15 12/13/18 23:44 Zofran Inj IVP 4 mg Q6HR PRN Administration Nausea / Vomiting Sodium Chloride 10 ml 12/13/18 16:43 12/14/18 04:00 Normal Saline Flush 0.9% IVP 10 ml PRN PRN Administration NEEDED PER PROVIDER ORDERS Sodium Chloride 10 ml 12/13/18 22:30 12/14/18 04:00 Normal Saline Flush 0.9% IVP 10 ml PRN PRN Administration NEEDED PER PROVIDER ORDERS Sodium Chloride 10 ml 12/14/18 01:00 12/14/18 04:00 Normal Saline Flush 0.9% IVP 10 ml 0100,0900,1700 ALHAJI Administration Terbutaline Sulfate 0.25 mg 12/13/18 23:00 12/14/18 00:59 Terbutaline SUBQ Not Given Q1H ALHAJI - Physical Exam Wound/Incisions: positive: Healing well, No drainage General Appearance: positive: No acute distress Respiratory: positive: Chest non-tender, No respiratory distress, Breath sounds nml Cardiovascular: positive: Regular rate & rhythm, No murmur, No gallop Abdomen: positive: Tenderness (over the incision) Back: negative: CVA tenderness (R), CVA tenderness (L) Skin: positive: Color nml, No rash, Warm Extremities: negative: Calf tenderness, Jelly's sign/cords Neurologic/Psychiatric: positive: Oriented x3 Impression/Plan - Problem List Problem List: POD # 1 progressing 36.5 weeks change to orals. colace tylenol.
[2018-12-14] MEDS: DOCUSATE SODIUM 100 MG CAPSULE PO SCH (09:56)
[2018-12-14] MEDS: ACETAMINOPHEN 500 MG TABLET PO PRN ×3 (09:56→20:17)
[2018-12-14] MEDS: oxyCODONE 5 MG TABLET PO PRN ×3 (09:57→20:18)
[2018-12-14] MEDS ORDERED: MAGNESIUM HYDROXIDE 2,400 MG/30 ML UDC PO PRN (10:12)
[2018-12-15] MEDS: LACTATED RINGERS 1,000 ML IV SCH ×2 (00:55→19:33)
[2018-12-15] MEDS: HYDROmorphone 2 MG/ML VIAL IVP PRN ×7 (01:08→23:53)
[2018-12-15] MEDS: ACETAMINOPHEN 500 MG TABLET PO PRN ×6 (01:58→20:44)
[2018-12-15] MEDS: oxyCODONE 5 MG TABLET PO PRN ×6 (01:59→22:53)
[2018-12-15] MEDS: SODIUM CHLORIDE FLUSH 0.9% 10 ML SYRINGE IVP SCH ×3 (08:07→09:38)
[2018-12-15] MEDS: SODIUM CHLORIDE FLUSH 0.9% 10 ML SYRINGE IVP PRN ×4 (08:16→18:49)
[2018-12-15] MEDS: SIMETHICONE CHEW 80 MG TABLET PO SCH ×5 (08:29→22:55)
--- NOTE | 2018-12-15 08:56 | PROVIDER PROGRESS NOTE ---
Subjective - General Admit Date: 12/13/18 Procedure Date: 12/13/18 Post Op Days: 2 Procedure Performed: Open Appendectomy - Review of Systems Wound/Incisions: positive: Healing well, No drainage Pulmonary: positive: No symptoms, Shortness of breath Cardiovascular: positive: No symptoms Gastrointestinal: negative: Flatus Genitourinary: positive: No symptoms Objective - Patient Data Vital Signs: Vital Signs x48h Temp Pulse Resp BP BP Pulse Ox 12/15/18 08:00 36.7 C 93 20 125/76 97 12/15/18 03:28 36.6 C 94 16 108/67 93 12/15/18 01:00 37 C 81 16 115/72 94 Weight: Weight 12/13/18 12/14/18 12/15/18 23:59 23:59 23:59 Weight (kg) 92.5 kg Intake & Output: Intake and Output Totals x24h 12/13/18 12/14/18 12/15/18 23:59 23:59 23:59 Intake Total 2100 1638.333 Output Total 300 1600 2050 Balance -300 500 -411.667 - Lab Results Lab Results: 12/14/18 06:01 12/13/18 16:05 - Current Medications Current Medications: Current Medications Generic Name Dose Route Start Last Admin Trade Name Freq PRN Reason Stop Dose Admin Acetaminophen 500 mg 12/14/18 08:37 12/15/18 06:46 Tylenol PO 500 mg Q4HR PRN Administration Pain or Fever > 38C (100.4F) Docusate Sodium 100 mg 12/14/18 09:00 12/14/18 09:56 Colace 100mg Capsule PO 100 mg DAILY ALHAJI Administration Hydromorphone HCl 2 mg 12/13/18 22:40 12/15/18 03:22 Dilaudid (Vial) IVP 2 mg Q2H PRN Administration PAIN Ondansetron HCl 4 mg 12/13/18 16:15 12/13/18 23:44 Zofran Inj IVP 4 mg Q6HR PRN Administration Nausea / Vomiting Oxycodone HCl 10 mg 12/14/18 08:36 12/15/18 06:46 Roxicodone PO 10 mg Q4HR PRN Administration PAIN Simethicone 80 mg 12/14/18 21:00 12/15/18 08:29 Mylicon PO Not Given 0900,1300,1800,2100 ALHAJI Sodium Chloride 10 ml 12/13/18 16:43 12/15/18 08:16 Normal Saline Flush 0.9% IVP 10 ml PRN PRN Administration NEEDED PER PROVIDER ORDERS Sodium Chloride 10 ml 12/13/18 22:30 12/14/18 04:00 Normal Saline Flush 0.9% IVP 10 ml PRN PRN Administration NEEDED PER PROVIDER ORDERS Sodium Chloride 10 ml 12/14/18 01:00 12/15/18 08:07 Normal Saline Flush 0.9% IVP Not Given 0100,0900,1700 ALHAJI
[2018-12-15] MEDS ORDERED: DEXTROSE 5%-LACTATED RINGERS 1,000 ML IV SCH (09:00)
--- NOTE | 2018-12-15 09:04 | PROVIDER PROGRESS NOTE ---
Subjective - General Admit Date: 12/13/18 Procedure Date: 12/13/18 Post Op Days: 2 Procedure Performed: Open Appendectomy - Review of Systems Wound/Incisions: positive: Healing well, No drainage General: positive: No symptoms (Still C/O post op Pain. 5/10. requireine both oxy coidone and dilaudid. not passing fletus. voiding. out of bed.) Pulmonary: positive: No symptoms, Shortness of breath Cardiovascular: positive: No symptoms Gastrointestinal: positive: Nausea (occasional nausia). negative: Flatus Genitourinary: positive: No symptoms Objective - Patient Data Reviewed Vital Signs: Yes Vital Signs: Vital Signs x48h Temp Pulse Resp BP BP Pulse Ox 12/15/18 08:00 36.7 C 93 20 125/76 97 12/15/18 03:28 36.6 C 94 16 108/67 93 Weight: Weight 12/13/18 12/14/18 12/15/18 23:59 23:59 23:59 Weight (kg) 92.5 kg Intake & Output: Intake and Output Totals x24h 12/13/18 12/14/18 12/15/18 23:59 23:59 23:59 Intake Total 2100 1638.333 Output Total 300 1600 2050 Balance -300 500 -411.667 - Lab Results Lab Results: 12/14/18 06:01 12/13/18 16:05 - Current Medications Current Medications: Current Medications Generic Name Dose Route Start Last Admin Trade Name Freq PRN Reason Stop Dose Admin Acetaminophen 500 mg 12/14/18 08:37 12/15/18 06:46 Tylenol PO 500 mg Q4HR PRN Administration Pain or Fever > 38C (100.4F) Docusate Sodium 100 mg 12/14/18 09:00 12/14/18 09:56 Colace 100mg Capsule PO 100 mg DAILY ALHAJI Administration Hydromorphone HCl 2 mg 12/13/18 22:40 12/15/18 03:22 Dilaudid (Vial) IVP 2 mg Q2H PRN Administration PAIN Ondansetron HCl 4 mg 12/13/18 16:15 12/13/18 23:44 Zofran Inj IVP 4 mg Q6HR PRN Administration Nausea / Vomiting Oxycodone HCl 10 mg 12/14/18 08:36 12/15/18 06:46 Roxicodone PO 10 mg Q4HR PRN Administration PAIN Simethicone 80 mg 12/14/18 21:00 12/15/18 08:29 Mylicon PO Not Given 0900,1300,1800,2100 [facility] Sodium Chloride 10 ml 12/13/18 16:43 12/15/18 08:16 Normal Saline Flush 0.9% IVP 10 ml PRN PRN Administration NEEDED PER PROVIDER ORDERS Sodium Chloride 10 ml 12/13/18 22:30 12/14/18 04:00 Normal Saline Flush 0.9% IVP 10 ml PRN PRN Administration NEEDED PER PROVIDER ORDERS Sodium Chloride 10 ml 12/14/18 01:00 12/15/18 08:07 Normal Saline Flush 0.9% IVP Not Given 0100,0900,1700 [facility] - Physical Exam Wound/Incisions: positive: Healing well, Dressing dry and intact General Appearance: positive: Alert, Mild distress Respiratory: positive: Chest non-tender, No respiratory distress, Breath sounds nml Cardiovascular: positive: Regular rate & rhythm, No murmur, No gallop Rectal: positive: Tenderness (difusely no rebound) Skin: positive: Color nml, No rash, Warm, Dry Extremities: negative: Calf tenderness, Jelly's sign/cords Impression/Plan - Problem List Problem List: POD #2 S/P Appy open Post op illious. dulcolax supository 36.4 weeks Cx is 1 cm 50% 0 staion Stop Terbutaline allow to labor
[2018-12-15 09:12] LABS: BASOPHILS % (AUTO) 0.3 %; EOSINOPHILS # (AUTO) 0.1 10^3/uL (0.0-0.7); EOSINOPHILS % (AUTO) 0.4 %; HGB - HEMOGLOBIN 10.3 g/dL (12.0-16.0); LYMPHOCYTES # (AUTO) 1.4 10^3/uL (1.5-3.5); LYMPHOCYTES % (AUTO) 11.7 %; MEAN CORPUSCULAR HGB CONC 32.4 g/dL (32.0-36.0); MEAN CORPUSCULAR VOLUME 86.4 fL (81.0-99.0); MEAN PLATELET VOLUME 9.3 fL (7.9-10.8); MONOCYTES % (AUTO) 8.1 %; NEUTROPHILS # (AUTO) 9.3 10^3/uL (1.5-6.6); NEUTROPHILS % (AUTO) 77.7 %; PLT - PLATELET COUNT 216 10^3/uL (130-450); RED BLOOD COUNT 3.68 10^6/uL (4.20-5.40); RED CELL DISTRIBUTION WIDTH 14.3 % (12.0-15.0); WHITE BLOOD COUNT 11.9 x10^3/uL (4.8-10.8)
[2018-12-15 09:19] LABS: ALBUMIN 2.7 g/dL (3.2-5.5); ALBUMIN/GLOBULIN RATIO 0.7 (1.0-2.2); ALKALINE PHOSPHATASE 84 IU/L (42-121); ALT ALANINE AMINOTRANSFERASE < 10 IU/L (10-60); AST ASPARTATE AMINOTRANSFERASE 12 IU/L (10-42); BILIRUBIN,TOTAL 0.8 mg/dL (0.2-1.0); BUN - BLOOD UREA NITROGEN < 5 mg/dL (6-20); CALCIUM 8.8 mg/dL (8.5-10.3); CARBON DIOXIDE - CO2 21 mmol/L (21-32); CHLORIDE 104 mmol/L (101-111); CREATININE 0.5 mg/dL (0.4-1.0); GFR - MDRD 149 (>89); GLUCOSE 87 mg/dL (70-100); SODIUM 138 mmol/L (135-145); TOTAL PROTEIN 6.5 g/dL (6.7-8.2)
[2018-12-15] MEDS: DOCUSATE SODIUM 100 MG CAPSULE PO SCH (09:35)
[2018-12-15] MEDS: BISACODYL 10 MG SUPP PR PRN (09:38)
[2018-12-15] MEDS ORDERED: MULTIVITAMIN IV SCH (10:00)
[2018-12-15] MEDS ORDERED: LACTATED RINGERS IV SCH (10:00)
[2018-12-15] MEDS ORDERED: DEXTROSE IV SCH (10:00)
[2018-12-15] MEDS ORDERED: METOCLOPRAMIDE 10 MG/2 ML VIAL IVP PRN (16:25)
[2018-12-15] MEDS ORDERED: fentaNYL 100 MCG/2 ML VIAL IVP PRN (18:49)
[2018-12-15] MEDS ORDERED: SODIUM CHLORIDE FLUSH 0.9% 10 ML SYRINGE IVP PRN (18:49)
[2018-12-15] MEDS ORDERED: MULTIVITAMIN IV 10 ML VIAL TPN SCH (19:00)
[2018-12-15 19:27] LABS: BASOPHILS % (AUTO) 0.2 %; EOSINOPHILS % (AUTO) 0.3 %; HGB - HEMOGLOBIN 10.6 g/dL (12.0-16.0); LYMPHOCYTES # (AUTO) 1.3 10^3/uL (1.5-3.5); LYMPHOCYTES % (AUTO) 10.1 %; MEAN CORPUSCULAR HEMOGLOBIN 27.6 pg (27.0-31.0); MEAN CORPUSCULAR HGB CONC 31.8 g/dL (32.0-36.0); MEAN CORPUSCULAR VOLUME 86.7 fL (81.0-99.0); MONOCYTES # (AUTO) 0.9 10^3/uL (0.0-1.0); MONOCYTES % (AUTO) 7.1 %; NEUTROPHILS # (AUTO) 10.3 10^3/uL (1.5-6.6); PLT - PLATELET COUNT 243 10^3/uL (130-450); RED BLOOD COUNT 3.84 10^6/uL (4.20-5.40); RED CELL DISTRIBUTION WIDTH 14.2 % (12.0-15.0); WHITE BLOOD COUNT 12.7 x10^3/uL (4.8-10.8)
[2018-12-15] MEDS ORDERED: LACTATED RINGERS 1,000 ML IV ONE (19:40)
[2018-12-16] MEDS ORDERED: SODIUM CHLORIDE FLUSH 0.9% 10 ML SYRINGE IVP SCH (01:00)
[2018-12-16] MEDS: LACTATED RINGERS 1,000 ML IV SCH ×2 (01:58→08:19)
[2018-12-16] MEDS: HYDROmorphone 2 MG/ML VIAL IVP PRN (05:00)
[2018-12-16] MEDS: DOCUSATE SODIUM 100 MG CAPSULE PO SCH (08:19)
[2018-12-16] MEDS: oxyCODONE 5 MG TABLET PO PRN ×3 (08:19→17:55)
[2018-12-16] MEDS: ACETAMINOPHEN 500 MG TABLET PO PRN ×2 (08:19→13:53)
[2018-12-16] MEDS: SIMETHICONE CHEW 80 MG TABLET PO SCH ×3 (08:20→17:55)
[2018-12-16 13:44] VITALS: BP 130/74
[2018-12-16] MEDS: BISACODYL 10 MG SUPP PR PRN (17:55)
--- NOTE | 2018-12-16 19:14 | POST OP PROGRESS NOTE ---
Subjective - General Admit Date: 12/15/18 Procedure Date: 12/13/18 Post Op Days: 3 Procedure Performed: Open Appendectomy - Review of Systems Wound/Incisions: positive: Healing well, Dressing dry and intact, No drainage General: positive: No symptoms (Still C/O post op Pain. 09/18. requireine oxycoidon. Passed Stool yesterday. voiding. out of bed.) Pulmonary: positive: No symptoms, Shortness of breath Cardiovascular: positive: No symptoms Gastrointestinal: positive: Nausea (occasional nausia). negative: Flatus Genitourinary: positive: No symptoms
--- NOTE | 2018-12-16 19:19 | PROVIDER PROGRESS NOTE ---
Subjective - General Admit Date: 12/15/18 Procedure Date: 12/13/18 Post Op Days: 3 Procedure Performed: Open Appendectomy - Review of Systems Wound/Incisions: positive: Healing well, Dressing dry and intact, No drainage General: positive: No symptoms (Still C/O post op Pain. /10. requireine oxycoidon. Passed Stool yesterday. voiding. out of bed.) Pulmonary: positive: No symptoms, Shortness of breath Cardiovascular: positive: No symptoms Gastrointestinal: positive: Nausea (occasional nausia). negative: Flatus Genitourinary: positive: No symptoms Objective - Patient Data Reviewed Vital Signs: Yes Vital Signs: Vital Signs x48h Temp Pulse Resp BP Pulse Ox 12/16/18 13:44 36.9 C 98 16 130/74 98 Intake & Output: Intake and Output Totals x24h 12/14/18 12/15/18 12/16/18 23:59 23:59 23:59 Intake Total 2100 3938.333 3462.5 Output Total 1600 2075 Balance 500 1142.936 2235.5 - Lab Results Lab Results: 12/15/18 19:11 12/15/18 08:50 Other Lab Results: Lab Results x24hrs 12/15/18 Range/Units 19:11 WBC 12.7 H (4.8-10.8) x10^3/uL RBC 3.84 L (4.20-5.40) 10^6/uL Hgb 10.6 L (12.0-16.0) g/dL Hct 33.3 L (37.0-47.0) % MCV 86.7 (81.0-99.0) fL MCH 27.6 (27.0-31.0) pg MCHC 31.8 L (32.0-36.0) g/dL RDW 14.2 (12.0-15.0) % Plt Count 243 (130-450) 10^3/uL MPV 9.0 (7.9-10.8) fL Neut # (Auto) 10.3 H (1.5-6.6) 10^3/uL Lymph # (Auto) 1.3 L (1.5-3.5) 10^3/uL [place] # (Auto) 0.9 (0.0-1.0) 10^3/uL Eos # (Auto) 0.0 (0.0-0.7) 10^3/uL Baso # (Auto) 0.0 (0.0-0.1) 10^3/uL Absolute Nucleated RBC 0.00 x10^3/uL Nucleated RBC % 0.0 /100WBC - Current Medications Current Medications: Current Medications Generic Name Dose Route Start Last Admin Trade Name Freq PRN Reason Stop Dose Admin Acetaminophen 1,000 mg 12/15/18 20:23 12/16/18 13:53 Tylenol PO 1,000 mg Q6HR PRN Administration Pain or Fever > 38C (100.4F) Bisacodyl 10 mg 12/15/18 08:56 12/16/18 17:55 Dulcolax Supp [place] 10 mg DAILY PRN Administration Constipation Docusate Sodium 100 mg 12/14/18 09:00 12/16/18 08:19 Colace 100mg Capsule PO 100 mg DAILY ALHAJI Administration Hydromorphone HCl 2 mg 12/13/18 22:40 12/16/18 05:00 Dilaudid (Vial) IVP 2 mg Q2H PRN Administration PAIN Lactated Ringer's 1,000 mls @ 150 mls/hr 12/15/18 19:00 12/16/18 08:19 Lr IV 150 mls/hr .Q6H40M ALHAJI Administration Ondansetron HCl 4 mg 12/13/18 16:15 12/13/18 23:44 Zofran Inj IVP 4 mg Q6HR PRN Administration Nausea / Vomiting Oxycodone HCl 10 mg 12/14/18 08:36 12/16/18 17:55 Roxicodone PO 10 mg Q4HR PRN Administration PAIN Simethicone 80 mg 12/14/18 21:00 12/16/18 17:55 Mylicon PO 80 mg 0900,1300,1800,2100 ALHAJI Administration - Physical Exam Wound/Incisions: positive: Healing well, No drainage General Appearance: positive: No acute distress (Mild pain with contractions) Respiratory: positive: Chest non-tender, No respiratory distress, Breath sounds nml Cardiovascular: positive: Regular rate & rhythm, No murmur, No gallop Abdomen: positive: Nml bowel sounds, No distention, Tenderness (Mild) Back: negative: CVA tenderness (R), CVA tenderness (L) Extremities: negative: Calf tenderness, Jelly's sign/cords Neurologic/Psychiatric: positive: Oriented x3 Impression/Plan - Problem List Problem List: POD # 3 Progressing normalizing White count. 36.5 weeks geststion NOt in labor right now. this may change discussed FM, SROM Chills Fevers Strong contractions RTC Friday Follow up with Surgery Discharge meds Oxycodone 10 Mg # 20 Colace 100 mg
--- NOTE | 2018-12-23 12:46 | DISCHARGE SUMMARY ---
Physician: Christiano Sun MD DATE OF ADMISSION: 12/15/2018 DATE OF DISCHARGE: 12/16/2018 ADMISSION DIAGNOSES 1. A 28-year-old G1, P0, 36-week gestation. 2. Acute appendicitis. PROCEDURE PERFORMED: Open appendectomy. DISCHARGE DIAGNOSES 1. A 28-year-old G1, P0, 36-week gestation. 2. Acute appendicitis. PRESENTING HISTORY: The patient is a 28-year-old G1, P0, female, who is 36 weeks gestation. She pre sents with right-sided abdominal pain. She was very uncomfortable. She lists the pain is roughly 8/ 10. She had labs, which does not show evidence of any hematuria. She has also had some nausea and v omiting. The concerns about appendicitis were entertained at this point. Her examination showed ten derness on the right flank as well as right side of the abdomen. LABORATORIES: CBC on admission showed a white count of 13,000, her hemoglobin was 11.6. Her platele ts were 262. On the , her white count had risen to 15.6, hemoglobin had fallen to 10.4. Her plat elets remained stable at 225. The 6th, prior to discharge, her white count was 12.7, hemoglobin 10.6 , and platelets were 246. Her electrolytes remained within normal limits throughout. Urine on admis jose showed ketones 15. REPORTS: Patient's CAT scan was read as stranding in the periappendiceal area where the appendix cou ld not be visualized. It was suspicious for appendicitis. HOSPITAL COURSE: Patient was admitted and workup was initiated. The possibility of having an append icitis was entertained and for this reason, a CAT scan was performed, which was suspicious for append icitis. Following consultation with Dr. Miguel Angel White, it was decided to proceed on with appendectom y. This was performed in an opened fashion secondary to a large gravid uterus. Procedure was somewh at difficult to perform; however, the appendix was finally reached, which was noted to be in the retr ocecal or posterior portion of the abdomen. It was removed and there was evidence of inflammation. This was compatible with appendicitis. Her postoperative course was complicated with difficulty with some pain control; however, this was obtained and she was discharged to home on 12/16. DISCHARGE MEDICATIONS 1. Oxycodone 10 mg. 2. Colace 100 mg. We discussed the issues about further chills, fevers, temperatures as well as return or resumption of labor. She was instructed to follow up in the clinic. TD: 12/23/2018 12:23
== END 2018-12-16 20:06 | disposition home or self-care (01) | DRG 818 ==
LOC: WFO 14:03 → FBP 14:04 → WFO 16:42 → FBP 16:43 → OBSVTOIN 12-15 18:49 → FBP 12-15 19:22 → UNDODISIN 12-16 20:06
PROVIDERS: ADMIT Surgery; ATTEND Obstetrics & Gynecology
PROC: 0DTJ0ZZ Resection of Appendix, Open Approach (ICD-10-PCS; principal; 2018-12-13 21:00)
DX: O60.03 Preterm labor without delivery, third trimester (principal); K35.80 Unspecified acute appendicitis; O99.62 Diseases of the digestive system complicating childbirth; Z3A.36 36 weeks gestation of pregnancy; Z37.0 Single live birth; G89.18 Other acute postprocedural pain
CPT/HCPCS: 36415; 74176; 76815; 80053; 81003; 82150; 83690; 85025; 86140; 99214; A9270; G0378; J0330; J1170; J1200; J2765; J7120; 81001; 87086

== ENCOUNTER 2018-12-21 20:14 | Emergency (ER) | payer OTHER ==
--- NOTE | 2018-12-21 22:45 | ED Physician Documentation ---
History of Present Illness - Stated complaint Stated Complaint: STITCH BLEED - Chief complaint Chief Complaint: Laceration - History obtained from History obtained from: Patient - Additonal information Additional information: Patient is a 28-year-old female 37 weeks and about 1 week status post open appendectomy presenting with serous drainage from her appendectomy surgical wound. Patient denies other complications with wound such as purulent drainage, pain, erythema or other rash. Patient also denies any complications with baby including decreased movement, abdominal pain, urinary changes, stool changes, vaginal bleeding. No fevers. Patient sees surgeon tomorrow and DISTRIBUTION COLLECTION OPERATOR later this week. No other improving or worsening factors noted. Review of Systems Constitutional: denies: Fever Skin: reports: Lesions PD PAST MEDICAL HISTORY - Past Medical History Cardiovascular: None Respiratory: None Neuro: None Endocrine/Autoimmune: None GI: None INSPECTOR ALUMINUM BOAT: None : None HEENT: None Psych: None Musculoskeletal: None Derm: None - Past Surgical History Past Surgical History: Yes General: Appendectomy - Allergies Allergies/Adverse Reactions: Allergies Allergy/AdvReac Type Severity Reaction Status Date / Time No Known Drug Allergies Allergy Verified 12/13/18 15:40 - Social History Smoking Status: Never smoker PD ED PE NORMAL - Vitals Vital signs reviewed: Yes - General General: Alert and oriented X 3, No acute distress, Well developed/nourished - HEENT HEENT: Atraumatic, Moist mucous membranes - Neck Neck: Supple, no meningeal sign - Respiratory Respiratory: No respiratory distress - Abdomen Abdomen: Soft, Non tender. No: Non distended (Gravid with several inch surgical wound in place over right abdomen with punctate leakage of serous fluid without other signs of infection such as induration, fluctuance, erythema or tenderness.) - Derm Derm: Normal color, Warm and dry, No rash, Other (Except as stated above) - Extremities Extremities: No deformity, No tenderness to palpate - Neuro Neuro: Alert and oriented X 3, No motor deficit, No sensory deficit - Psych Psych: Normal mood, Normal affect Results - Vitals Vitals: Vital Signs - 24 hr 12/21/18 20:35 Temperature 37.2 C Heart Rate 75 Respiratory 16 Rate Blood Pressure 141/82 H O2 Saturation 98 Oxygen O2 Source Room air PD MEDICAL DECISION MAKING - ED course Complexity details: considered differential, d/w patient ED course: Patient presenting with concern for abnormal drainage from her postsurgical wound. Patient is 37 weeks and feel that the increased pelvic and a bdominal pressure is causing serous fluid to leak minimally from the wound. No other signs of wound infection, systemic illness, or other complication. Do not have concerns regarding baby at this time. Patient to see general surgery tomorrow. Patient to see DISTRIBUTION COLLECTION OPERATOR later this week. Do not feel patient requires basic testing, imaging, or antibiotics at this time. Patient voices understanding and is comfortable with discharge plan. Departure - Departure Disposition: 01 Home, Self Care Clinical Impression: Wound of skin Condition: Good Instructions: ED Wound Care Follow-Up: Jos Galvan MD [Primary Care Provider] - Within 3 Days Miguel Angel White MD [Provider Admit Priv/Credential] - Tomorrow Comments: Please continue vitamins. Please follow-up with surgery as scheduled tomorrow and DISTRIBUTION COLLECTION OPERATOR as scheduled later this week. Please keep wound clean and dry and bandage appropriately. Return to ED sooner if experience worsening symptoms including signs of infection surrounding wound, abdominal pain, vaginal bleeding, fever or other concerns.
[2018-12-21 23:08] VITALS: BP 134/75
== END 2018-12-21 23:14 | disposition home or self-care (01) ==
LOC: ED 20:14
DX: O99.89 Other specified diseases and conditions complicating pregnancy, childbirth and the puerperium (principal); S31.109A Unspecified open wound of abdominal wall, unspecified quadrant without penetration into peritoneal cavity, initial encounter; Y83.8 Other surgical procedures as the cause of abnormal reaction of the patient, or of later complication, without mention of misadventure at the time of the procedure; Z90.49 Acquired absence of other specified parts of digestive tract; Z3A.37 37 weeks gestation of pregnancy
CPT/HCPCS: 99282

== ENCOUNTER 2018-12-23 21:53 | Outpatient (CLI) | payer OTHER ==
[2018-12-23 22:45] LABS: BILIRUBIN,URINE NEGATIVE (NEGATIVE); GLUCOSE, URINE (UA) NEGATIVE (NEGATIVE); KETONES,URINE (UA) NEGATIVE (NEGATIVE); LEUKOCYTE ESTERASE, URINE NEGATIVE (NEGATIVE); NITRITE,URINE NEGATIVE (NEGATIVE); OCCULT BLOOD,URINE NEGATIVE (NEGATIVE); PROTEIN,URINE NEGATIVE (NEGATIVE); UROBILINOGEN,URINE 0.2 (NORMAL) E.U./dL (NORMAL)
[2018-12-23 22:47] LABS: CLARITY,URINE CLEAR (CLEAR)
[2018-12-23 23:07] LABS: CREATININE,URINE 47.4 mg/dL
[2018-12-23 23:11] LABS: TOTAL PROTEIN,URINE TIMED < 6 mg/dL
[2018-12-23 23:41] VITALS: BP 124/65
--- NOTE | 2019-01-08 12:06 | PROVIDER PROGRESS NOTE ---
- HPI Chief Complaint: Labor Check Current : Current EDU 01/08/19 Gestation 37 Weeks and 5 Days 2 Para 0 Vital Signs Temperature 36.9 C 12/23/18 22:11 Heart Rate 92 12/23/18 22:11 Respiratory Rate 16 12/23/18 22:11 Blood Pressure 143/80 H 12/23/18 22:11 O2 Saturation 98 12/23/18 22:11 Temperature 36.9 C 12/23/18 22:11 Heart Rate 86 12/23/18 22:38 Respiratory Rate 16 12/23/18 22:11 Blood Pressure 124/65 12/23/18 22:38 O2 Saturation 97 12/23/18 22:38 - Procedures NST Procedure: NST Procedure Start Time 14:14 Stop Time 14:55 Service Date of procedure: 12/23/18 Procedure Details: rule out labor. no changes. - Plan Plan: monitor for contractions and SROM, FM
== END 2018-12-23 23:35 | disposition home or self-care (01) ==
LOC: WFO 21:53 → FBP 21:54 → WFO 23:35
PROVIDERS: ATTEND Obstetrics & Gynecology
DX: Z34.83 Encounter for supervision of other normal pregnancy, third trimester (principal)
CPT/HCPCS: 81001; 81003; 82570; 84156; 87086; 99213

== ENCOUNTER 2018-12-24 08:00 | Outpatient (CLI) | payer OTHER | END 2018-12-24 23:59 | disposition home or self-care (01) | LOC: LAB.R 08:00 | PROVIDERS: ATTEND Obstetrics & Gynecology | DX: K35.80 Unspecified acute appendicitis (principal); Z34.90 Encounter for supervision of normal pregnancy, unspecified, unspecified trimester | CPT/HCPCS: 87070; 87077; 87181; 87205; 87797 ==

== ENCOUNTER 2019-01-01 07:36 | Inpatient (IN) | payer OTHER ==
[2019-01-01] MEDS ORDERED: DINOPROSTONE 10 MG SUPP VG ONE (08:58)
[2019-01-01] MEDS ORDERED: miSOPROStol 200 MCG TABLET PR PRN (09:19)
[2019-01-01] MEDS ORDERED: METHYLERGONOVINE 0.2 MG/ML AMP IM PRN (09:19)
[2019-01-01] MEDS ORDERED: CARBOPROST TROMETHAMINE 250 MCG/ML AMP IM PRN (09:19)
[2019-01-01] MEDS ORDERED: ONDANSETRON 4 MG/2 ML VIAL IVP PRN (09:19)
[2019-01-01] MEDS ORDERED: SODIUM CHLORIDE FLUSH 0.9% 10 ML SYRINGE ONE ×2 (09:38→12:50)
[2019-01-01] MEDS: SODIUM CHLORIDE FLUSH 0.9% 10 ML SYRINGE IVP PRN (09:49)
[2019-01-01 09:57] LABS: BASOPHILS % (AUTO) 0.2 %; EOSINOPHILS # (AUTO) 0.1 10^3/uL (0.0-0.7); EOSINOPHILS % (AUTO) 0.9 %; HGB - HEMOGLOBIN 9.8 g/dL (12.0-16.0); LYMPHOCYTES # (AUTO) 2.6 10^3/uL (1.5-3.5); LYMPHOCYTES % (AUTO) 30.8 %; MEAN CORPUSCULAR HEMOGLOBIN 26.8 pg (27.0-31.0); MEAN CORPUSCULAR HGB CONC 31.7 g/dL (32.0-36.0); MEAN CORPUSCULAR VOLUME 84.4 fL (81.0-99.0); MEAN PLATELET VOLUME 9.6 fL (7.9-10.8); MONOCYTES # (AUTO) 0.8 10^3/uL (0.0-1.0); NEUTROPHILS % (AUTO) 58.2 %; PLT - PLATELET COUNT 297 10^3/uL (130-450); RED BLOOD COUNT 3.66 10^6/uL (4.20-5.40); RED CELL DISTRIBUTION WIDTH 14.8 % (12.0-15.0); WHITE BLOOD COUNT 8.6 x10^3/uL (4.8-10.8)
[2019-01-01] MEDS: AMPICILLIN/SULBACTAM 3 GM in SODIUM CHLORIDE 0.9% MINIBAG 100 ML IV SCH ×2 (12:02→18:04)
[2019-01-01] MEDS: LACTATED RINGERS 1,000 ML IV SCH ×2 (12:07→21:16)
--- NOTE | 2019-01-01 12:48 | HISTORY & PHYSICAL EXAMINATION ---
Admit History - Visit Reason Visit Reason: Other (Induction of labor.) - : 1 Parity: 0 Premature: 0 Ectopic: 0 : 0 Care: positive: [facility] Risk/History: positive: Gestational diabetes, Other (Appendicitis with Appy at 36 weeks) Complications This : positive: Other (Appendicitis) Smoking Status: Former smoker - Mother's Labs Mother's Blood Type: positive: AB Mother's RH: positive: Positive GBS: positive: Group B Strep Positive Rubella Status: positive: Immune Meds/Allgy - Allergies Allergies/Adverse Reactions: Allergies Allergy/AdvReac Type Severity Reaction Status Date / Time No Known Drug Allergies Allergy Verified 12/13/18 15:40 Physical - Abdominal Exam Contraction Intensity: positive: Mild Uterine Resting Tone: positive: Soft - Monitoring Strip Review: positive: Category I - Presentation Presentation: positive: Vertex - Vaginal Exam Membranes: positive: Membranes intact Dilation (in cm): 2 Effacement (%): 30 Station: positive: -3 Cervical Position: positive: Posterior - Other Notes Labor Progress Note/Additional Text: Pt is a 28 yo Ab1 EDC 01/08/19 39 weeks. Pt started Care st 11 weeks Care was unremarkable until 36 weeks when she developed Acute Appendicitis. Appy was preformed open with some difficulty. post op was painful. She stopped her narcotics. bShe presents for induction. she had wound cultures which grew pseudomonis. She is group B positive. Plan for Labor - Plan For Labor I expect patient to be DC'd or transferred within 96 hours.: Yes Plan for Labor: cerevical ripening with cervidel. unisy for GBS and Pseudomonis. Epidural upon request.
[2019-01-01] MEDS: ACETAMINOPHEN 325 MG TABLET PO PRN ×2 (15:06→22:12)
--- NOTE | 2019-01-01 17:08 | PROVIDER PROGRESS NOTE ---
Labor Progress Note - Uterine Monitoring Contraction Frequency (min/apart): 2-3 min Contraction Intensity: positive: Moderate to strong - Monitoring Monitor Mode: positive: External ultrasound Heart Rate Variability: positive: Moderate (6-25 bmp) Accelerations: positive: Present, 15x15 Decelerations: positive: None Strip Review: positive: Category I - Vaginal Exam Dilation (in cm): 2 Effacement (%): 50 Station: -2 Cervical Position: Posterior - Labor Progress Note Labor Progress Note/Additional Text: Pt is responding to the cervidel.
[2019-01-01] MEDS: fentaNYL 100 MCG/2 ML VIAL IVP PRN ×2 (17:22→20:17)
[2019-01-01] MEDS: SODIUM CHLORIDE FLUSH 0.9% 10 ML SYRINGE IVP SCH ×2 (17:24→20:17)
[2019-01-01] MEDS ORDERED: ZOLPIDEM 5 MG TABLET PO PRN (19:28)
[2019-01-02] MEDS: AMPICILLIN/SULBACTAM 3 GM in SODIUM CHLORIDE 0.9% MINIBAG 100 ML IV SCH ×4 (00:13→18:35)
[2019-01-02] MEDS: SODIUM CHLORIDE FLUSH 0.9% 10 ML SYRINGE IVP SCH ×2 (06:55→19:08)
[2019-01-02] MEDS: fentaNYL 100 MCG/2 ML VIAL IVP PRN ×2 (09:37→11:04)
[2019-01-02] MEDS: SODIUM CHLORIDE FLUSH 0.9% 10 ML SYRINGE IVP PRN (09:41)
--- NOTE | 2019-01-02 17:27 | PROVIDER PROGRESS NOTE ---
Labor Progress Note - Uterine Monitoring Uterine Monitoring Mode: positive: External toco Contraction Frequency (min/apart): 0 Uterine Resting Tone: positive: Soft - Monitoring Monitor Mode: positive: External ultrasound Heart Rate Baseline: 125 Heart Rate Variability: positive: Moderate (6-25 bmp) Accelerations: positive: Present, 10x10 (=/32 wks) Decelerations: positive: None Strip Review: positive: Category I - Vaginal Exam Dilation (in cm): 6 Effacement (%): 60 Station: -2 Cervical Position: Posterior - Labor Progress Note Labor Progress Note/Additional Text: Manas gary fell out. discussed options with Pt. could rest and start in the AM or press forward. Start Pitocin AROM when able.
[2019-01-02] MEDS: LACTATED RINGERS 1,000 ML IV SCH ×2 (17:45→19:08)
[2019-01-02] MEDS ORDERED: OXYTOCIN/DEXTROSE 5 % 30 UNIT/500 ML BAG IV SCH (18:00)
[2019-01-02] MEDS ORDERED: LACTATED RINGERS 500 ML IV ONE (21:23)
[2019-01-02] MEDS ORDERED: NALOXONE 0.4 MG/ML VIAL IVP PRN (21:23)
[2019-01-02] MEDS ORDERED: diphenhydrAMINE INJ 50 MG/ML VIAL IVP PRN (21:23)
[2019-01-02] MEDS ORDERED: NALBUPHINE 10 MG/ML AMP IVP PRN (21:23)
[2019-01-02] MEDS ORDERED: METOCLOPRAMIDE 10 MG/2 ML VIAL IVP PRN (21:23)
[2019-01-02] MEDS ORDERED: fent/BUPIV 2 MCG/0.125% 250 ML EP PRN (21:23)
[2019-01-02] MEDS ORDERED: ePHEDrine 50 MG/ML VIAL IVP PRN (21:23)
[2019-01-02] MEDS ORDERED: ONDANSETRON 4 MG/2 ML VIAL IVP PRN (21:23)
--- NOTE | 2019-01-02 21:27 | ANESTHESIA ---
Pre-Anesthesia VS, & Labs - Diagnosis active labor - Procedure desires labor epidural Height 5 ft 5 in Weight (kg) 91.626 kg Body Mass Index 34.6 - NPO Other (clears now) - Is Patient ?: Yes - Lab Results Current Lab Results: Laboratory Tests 01/01/19 09:43: WBC 8.6, RBC 3.66 L, Hgb 9.8 L, Hct 30.9 L, MCV 84.4, MCH 26.8 L , MCHC 31.7 L, RDW 14.8, Plt Count 297, MPV 9.6, Neut # (Auto) 5.0, Lymph # (Auto) 2.6, George # (Auto) 0.8, Eos # (Auto) 0.1, Baso # (Auto) 0.0, Absolute Nucleated RBC 0.00, Nucleated RBC % 0.0 Fish Bones: 01/01/19 09:43 Home Medications and Allergies Active Medications Acetaminophen (Tylenol) 650 mg PO Q6H PRN PRN Reason: Pain or Fever Last Admin: 01/01/19 22:12 Dose: 650 mg Carboprost Tromethamine (Hemabate) 250 mcg IM ONCE PRN PRN Reason: Post- Hemorrhage Stop: 01/03/19 09:18 Diphenhydramine HCl (Benadryl Inj) 12.5 - 25 mg IVP Q6HR PRN PRN Reason: ITCHING Ephedrine Sulfate () 5 mg IVP Q5M PRN PRN Reason: For SBP<100;give until SBP>100 Fentanyl (Fentanyl) 50 mcg IVP Q1H PRN PRN Reason: PAIN Last Admin: 01/02/19 11:04 Dose: 50 mcg Lactated Ringer's (Lr) 1,000 mls @ 100 mls/hr IV .Q10H ALHAJI Last Admin: 01/02/19 19:08 Dose: Not Given Ampicillin Sodium/Sulbactam (Sodium 3 gm/ Sodium Chloride) 100 mls @ 200 mls/hr IV Q6HR ALHAJI Last Infusion: 01/02/19 19:08 Dose: Infused OXYTOCIN/DEXTROSE 5 % (Pitocin/Dextrose 5%) 30 unit in 500 mls @ 1 mls/hr IV TITR ALHAJI; Protocol Last Titration: 01/02/19 20:02 Dose: 5 milliunit/min, 5 mls/hr Fentanyl/Bupivacaine/Sodium Chlor (Fent/Bupiv 2 Mcg/0.125%) 250 mls @ 0 mls/hr EP .Q0M PRN; Protocol PRN Reason: PAIN Lactated Ringer's (Lr) 500 mls @ 999 mls/hr IV ONCE ONE Stop: 01/02/19 21:53 Methylergonovine Maleate (Methergine Inj) 0.2 mg IM Q4H PRN PRN Reason: Post- Hemorrhage Metoclopramide HCl (Reglan Inj) 10 mg IVP Q6HR PRN PRN Reason: Nausea / Vomiting Misoprostol (Cytotec) 800 mcg NH ONCE PRN PRN Reason: Post- Hemorrhage Stop: 01/03/19 09:18 Nalbuphine HCl (Nubain) 2.5 - 5 mg IVP Q4H PRN PRN Reason: ITCHING Naloxone HCl (Narcan) 0.1 mg IVP Q2M PRN PRN Reason: RR<8 Ondansetron HCl (Zofran Inj) 4 mg IVP Q4HR PRN PRN Reason: Nausea / Vomiting Ondansetron HCl (Zofran Inj) 4 mg IVP Q6HR PRN PRN Reason: Nausea / Vomiting Sodium Chloride (Normal Saline Flush 0.9%) 10 ml IVP 0100,0900,1700 ALHAJI Last Admin: 01/02/19 19:08 Dose: Not Given Sodium Chloride (Normal Saline Flush 0.9%) 10 ml IVP PRN PRN PRN Reason: NEEDED PER PROVIDER ORDERS Last Admin: 01/02/19 09:41 Dose: 10 ml Zolpidem Tartrate (Ambien) 5 mg PO QPM PRN PRN Reason: Insomnia Last Admin: 01/01/19 22:13 Dose: 5 mg Allergies/Adverse Reactions: Allergies Allergy/AdvReac Type Severity Reaction Status Date / Time No Known Drug Allergies Allergy Verified 12/13/18 15:40 Anes History & Medical History - Anesthetic History Anesthesia Complications: reports: No previous complications - Medical History Cardiovascular: reports: None Pulmonary: reports: None Gastrointestinal: reports: None Urinary: reports: None Neuro: reports: None Musculoskeletal: reports: None Endocrine/Autoimmune: reports: None Skin: reports: None Smoking Status: Former smoker - Surgical History General: Appendectomy - Obstetrical History : 1 Parity: 0 Events: positive: Gestational diabetes, Other (Appendicitis with Appy at 36 weeks) Complications: positive: Other (Appendicitis) Exam General: Alert, Oriented x3 Dental: WNL Mouth Opening: Greater than 4 Fingerbreadths Neck Mobility: Normal Mallampati classification: II Thyromental Distance: greater than 6 cm Plan Anesthesia Type: Epidural Consent for Procedure(s) Verified and Reviewed: Yes Code Status: Attempt Resuscitation ASA classification: 2-Mild systemic disease Is this case an emergency?: No
--- NOTE | 2019-01-02 23:09 | PROVIDER PROGRESS NOTE ---
Labor Progress Note - Uterine Monitoring Uterine Monitoring Mode: positive: External toco Contraction Frequency (min/apart): 2-3 Contraction Intensity: positive: Strong Uterine Resting Tone: positive: Soft - Monitoring Monitor Mode: positive: External ultrasound Heart Rate Baseline: 125 Heart Rate Variability: positive: Moderate (6-25 bmp) Accelerations: positive: Present, 15x15 Decelerations: positive: None Strip Review: positive: Category I - Vaginal Exam Dilation (in cm): 7 Effacement (%): 80 Station: 0 Cervical Position: Midposition - Labor Progress Note Labor Progress Note/Additional Text: Epidiral in place and working AROM. Progressing.
[2019-01-03] MEDS ORDERED: SODIUM CHLORIDE 0.9% 100ML 100 ML IV ONE (02:01)
[2019-01-03] MEDS: AMPICILLIN/SULBACTAM 3 GM in SODIUM CHLORIDE 0.9% MINIBAG 100 ML IV SCH (02:08)
[2019-01-03] MEDS: LACTATED RINGERS 1,000 ML IV SCH ×2 (02:17→10:07)
[2019-01-03] MEDS ORDERED: LIDOCAINE-MPF 1% 30 ML VIAL TOP ONE (09:40)
[2019-01-03] MEDS ORDERED: OXYTOCIN/DEXTROSE 5 % 30 UNIT/500 ML BAG IV PRN (10:00)
[2019-01-03] MEDS ORDERED: LIDOCAINE 1% 2 ML VIAL SUBQ ONE (10:04)
[2019-01-03] MEDS ORDERED: OXYTOCIN 10 UNIT/ML VIAL IM ONE (10:05)
[2019-01-03] MEDS ORDERED: diphenhydrAMINE 25 MG CAPSULE PO PRN (10:05)
[2019-01-03] MEDS ORDERED: ONDANSETRON ODT 4 MG TABLET TL PRN (10:05)
[2019-01-03] MEDS ORDERED: WITCH HAZEL/GLYCERIN 1 PAD TOP PRN (10:05)
[2019-01-03] MEDS ORDERED: oxyCODONE 5 MG TABLET PO PRN (10:05)
--- NOTE | 2019-01-03 10:14 | DELIVERY NOTE ---
Delivery Note - Labor Labor: positive: Other (cervical ripening with cervidel and Cook cathiter) - Infant Delivery Method Infant Delivery Method: positive: Spontaneous vaginal delivery - Cervical Ripening Method Cervical Ripening Method: positive: Balloon device, Prostaglandin E2 - Presentation Presentation: positive: Vertex, OA - occiput anterior - Nuchal Cord Nuchal Cord: positive: None - Anesthetic Anesthetic: positive: Lidocaine - 1% plain Volume: positive: Other (25) - Episiotomy Type Episiotomy Type: positive: None - Laceration Laceration: positive: 1st degree - Suture Suture Type: positive: Vicryl Suture Size: positive: 3-0 - Delivery Outcome Delivery Outcome: positive: Livebirth (Male, Apgars 8/9) - : positive: Placed in direct skin contact with mother, Bulb syringe, Stimulated, [place] used [place] sex: positive: Male - Cord Cord: positive: 3 vessels - Placenta Placenta: positive: Intact, Spontaneous - Estimated Blood Loss Estimated Blood Loss (in cc): 300 - Post Delivery Events Post Delivery Events: positive: No post delivery events - Delivery Comments (Free Text/Narrative) Delivery Comments (Free Text/Narrative): Pt presented for cervical ripening 01/01 at 39 weeks. cerviedl palced with strong contractions. Cervix softened but didn't diliate. Cook cathiter placed AM 24th. Reached 5 cm and came out. Pitocin started. AROM at 2255 that evening. reached complete at 0610 01/03. Labored down adn started pushing 0800 Delivered at 0926 Live Male OA over 1st degree laceration. Apgars 8/9. Placenta followed at 0933 intact. repare with lidocane and 3-0 vicril. EBL 300 ml.
[2019-01-03] MEDS ORDERED: LACTATED RINGERS 1,000 ML IV SCH (11:00)
[2019-01-03] MEDS: ACETAMINOPHEN 325 MG TABLET PO PRN ×3 (11:09→23:21)
[2019-01-03] MEDS: IBUPROFEN 600 MG TABLET PO SCH ×3 (11:09→23:21)
[2019-01-03] MEDS ORDERED: LIDOCAINE 1% 50 ML MDV TD ONE (13:16)
[2019-01-03] MEDS: SODIUM CHLORIDE FLUSH 0.9% 10 ML SYRINGE IVP PRN ×2 (13:22→17:03)
[2019-01-03] MEDS: DOCUSATE SODIUM 100 MG CAPSULE PO SCH (20:27)
[2019-01-03] MEDS: HYDROCORTISONE 1% CREAM 28 GM TUBE PR PRN (20:28)
[2019-01-03] MEDS: AMOX/CLAV 500 MG/125 MG TABLET PO SCH (20:35)
[2019-01-04] MEDS: ACETAMINOPHEN 325 MG TABLET PO PRN ×3 (05:44→19:20)
[2019-01-04] MEDS: IBUPROFEN 600 MG TABLET PO SCH ×3 (05:44→19:20)
--- NOTE | 2019-01-04 07:43 | PROVIDER PROGRESS NOTE ---
Subjective - Subjective Subjective: S: Bonding well with baby. with some difficulty getting baby to latch and stay latched for a feed secondary to baby being sleepy at the breast despite unclothing him. Has been able to hand express and teaspoon feed and was then able to pump and syringe feed this morning. Bleeding is slightly increased from yesterday but she states she has been keeping a close eye on it. Reports it seems to have increased after she pumped. She reports her perineum is slightly uncomfortable but is able to get comfortable with position changes. Reports her incision pain has been slightly better since she is no longer . supportive at the bedside. O: Heart RRR w/o M/G/R, lungs CTAB, abdomen soft and nontender with fundus firm at U. Perineum intact. Light lochia rubra. Bilateral LE's no edema. A: 28yo s/p TSVD of viable male infant P: Continue routine pp care and medications. Evaluate for discharge home tomorrow. Pt verbalized understanding and agrees to above plan. She denies further questions or concerns at this time. Objective - Vital Signs/Intake & Output Vital Signs: Vital Signs x48h Temp Pulse Resp BP Pulse Ox 01/04/19 02:00 36.9 C 81 16 109/56 L 98 Intake & Output: Intake & Output 01/01/19 01/02/19 01/03/19 01/04/19 23:59 23:59 23:59 23:59 Intake Total 200 1404.55 3134.999 Output Total 1999 05 Balance 200 1404.55 1134.999 -1 - Lab Results Fish Bones: 01/01/19 09:43
[2019-01-04] MEDS: DOCUSATE SODIUM 100 MG CAPSULE PO SCH ×2 (08:40→21:24)
[2019-01-04] MEDS: AMOX/CLAV 500 MG/125 MG TABLET PO SCH ×2 (08:40→21:24)
[2019-01-04] MEDS: HYDROCORTISONE 1% CREAM 28 GM TUBE PR PRN (22:21)
[2019-01-05] MEDS: ACETAMINOPHEN 325 MG TABLET PO PRN ×2 (01:23→08:22)
[2019-01-05] MEDS: IBUPROFEN 600 MG TABLET PO SCH ×2 (01:23→08:21)
[2019-01-05 08:17] VITALS: BP 134/79
[2019-01-05] MEDS: AMOX/CLAV 500 MG/125 MG TABLET PO SCH (08:22)
[2019-01-05] MEDS: DOCUSATE SODIUM 100 MG CAPSULE PO SCH (08:22)
--- NOTE | 2019-01-05 08:32 | PROVIDER PROGRESS NOTE ---
Subjective - Prog Note Date Prog Note Date: 01/05/19 Prog Note Time: 08:29 - Subjective Pt reports feeling: Improved (Pain 3/10. breast feeding, milk not in.) Objective - Vital Signs/Intake & Output Reviewed Vital Signs: Yes Vital Signs: Vital Signs x48h Temp Pulse Resp BP Pulse Ox 01/05/19 08:16 36.9 C 86 16 134/79 H 100 01/05/19 04:43 37.0 C 73 16 130/70 100 Intake & Output: Intake & Output 01/02/19 01/03/19 01/04/19 01/05/19 23:59 23:59 23:59 23:59 Intake Total 1404.55 3134.999 600 Output Total 2000 Balance 1404.55 1134.999 599 - Objective General Appearance: positive: No acute distress, Alert Respiratory: positive: Chest non-tender, No respiratory distress, Breath sounds nml Cardiovascular: positive: Regular rate & rhythm, No murmur, No gallop Abdomen: positive: Non-tender, No organomegaly, Nml bowel sounds, No distention, Mass (U-1) Back: negative: CVA tenderness (R), CVA tenderness (L) Extremities: negative: Calf tenderness, Jelly's sign/cords - Lab Results Fish Bones: 01/01/19 09:43 Assessment/Plan - Problem List (1) (spontaneous vaginal delivery) Impression: Progressing well Send home reviewed breast feeding. discussed contraception. Discharge Meds Augmentin 500/125 motrin 800 colace 100 Iron Sulfate RTC one week. (2) Wound infection after surgery Impression: healing well no discharge. finish 7 days Augmentin
--- NOTE | 2019-01-05 08:36 | Discharge Plan ---
Discharge Plan Problem Reviewed?: Yes Disposition: Home, Self Care Diet: Regular Activity Restrictions: No Restrictions Shower Restrictions: No Driving Restrictions: No No Smoking: If you smoke, Please STOP! Call for help.
--- NOTE | 2019-01-05 13:06 | Labor Flowsheet ---
Labor Flowsheet Datetime Report Generated by CPN: 01/05/2019 13:06 Datetime: 01/05/2019 08:06 VITAL SIGNS NBP Sys/Ashwini/Mean (mmHg): 134 : 79 : 90 Pulse: 87 LaborFlag: Labor Datetime: 01/05/2019 04:45 SpO2 (%): 100 Datetime: 01/03/2019 09:26 Comments: interrupted strip with pushtin Datetime: 01/03/2019 09:15 UTERINE ACTIVITY Monitor Mode: External Frequency (min): 2-3 Quality: Moderate Duration (sec): 60-110 Pattern: Normal: <= 5 Contractions in 10 Minutes Resting Tone (Palpate): Relaxed ASSESSMENT A Monitor Mode: External US FHR Baseline Rate : 150 Variability: Moderate 6-25 bpm Accelerations: 15X15 Decelerations: None Category: Category I Oxygen Method: Room Air STAGE 2 Pushing: Coached on Pushing Pushing Position: Pushing with Contractions Pushing Progress: Descent with Pushing; Presenting Part Visible Datetime: 01/03/2019 09:09 COMMUNICATION Communication: Provider at Bedside Provider Notified (Name): Communication Comments: at bedside Datetime: 01/03/2019 08:51 Temperature (C): 37.4 Datetime: 01/03/2019 08:48 Notification Reason: Labor Status Datetime: 01/03/2019 08:31 Respirations: 20 Temperature Route: Oral Datetime: 01/03/2019 08:18 Anesthesia Level Check: T11 Datetime: 01/03/2019 08:15 Monitor Interventions for FHR: Ultrasound Adjusted Datetime: 01/03/2019 07:31 PAIN Pain Scale: 8 Pain Presence: Intermittent Pain Type: Contraction Pain Location: Abdomen; Back Pain Relief Measures: Epidural Given; Comfort Measures Pain Coping: Breathing Through Contractions (Annotations: press [facility] ) Datetime: 01/03/2019 07:30 Patient Position/Activity: HOB Lowered; Left Lateral Datetime: 01/03/2019 07:03 Comfort Measures: Breathing/Relaxation Datetime: 01/03/2019 07:02 FHR Baseline Changes: No Baseline Change Patient Care Comments: Pt sitting in Upright position to labor down Datetime: 01/03/2019 06:40 Stage of : Labor Provider Reviewed Strip: No Strip Reviewed by: Shannon Datetime: 01/03/2019 06:30 Pitocin Checklist: At Least 1 Acceleration of 15 bpm x 15 Seconds in 30 Minutes or Adequate Variabi lity; Uterus Palpates Soft between Contractions Datetime: 01/03/2019 06:10 VAGINAL EXAM Dilatation (cm): 10.0 Station: 0 Datetime: 01/03/2019 04:59 Pain Assessment Comments: Pt declines to push PCEA button. Hygiene: Jacquelyn Care Datetime: 01/03/2019 04:55 Exam by: KH Vaginal Exam Comments: Pt with large amt emesis. SVE done, exam unchanged Datetime: 01/03/2019 04:30 Monitor Interventions for UA: [place] Adjusted Datetime: 01/03/2019 03:59 Vaginal Bleeding: Normal Show Cervix, Consistency: Soft Datetime: 01/03/2019 01:59 I/O Interventions: Clear Liquids Given Datetime: 01/03/2019 01:29 Contraction Comments: Difficult to monitor ctx Datetime: 01/03/2019 01:09 Effacement (%): 100 Datetime: 01/02/2019 22:55 Membrane Status: Ruptured Membranes Rupture Method: Artificial Amniotic Fluid Color: Clear Amniotic Fluid Amount: Moderate Amniotic Fluid Odor: Normal Cervix, Position: Anterior Datetime: 01/02/2019 22:46 MEDICATIONS Pitocin (milliunits): Increased to @ 11 Datetime: 01/02/2019 20:51 Epidural Procedure: Loading Dose Anesthesia Comments: Taping catheter Datetime: 01/02/2019 20:45 PROCEDURE TIME OUT Procedure Verify: Correct Patient Identity; Correct Side and Site are Marked; Accurate Procedure Co nsent Form; Agreement on Procedure to be Done; Correct Patient Position; Relevant Images and Results are Properly Labeled and Displayed; Addressed Need to Administer Antibiotics or Fluids for Irrigation ; Safety Precautions Based on Patient History or Medication Use ANESTHESIA Anesthesia Plans: Epidural Epidural Positioning: Sitting Datetime: 01/02/2019 18:35 Medication Comments: unasyn Datetime: 01/02/2019 17:49 PATIENT CARE IV/Blood Work: IV Infusing per Order Datetime: 01/02/2019 17:26 TEACHING Instructional Method: Verbal Plan of Care: Plan of Care Discussed; Vaginal Delivery Medications: Pitocin Datetime: 01/02/2019 16:42 Cervical Ripening Agents: Roth Balloon Datetime: 01/02/2019 16:00 MATERNAL ASSESSMENT Level of Consciousness: Fully Conscious Headache: Denies Breath Sounds, Left: Clear and Equal Breath Sounds, Right: Clear and Equal Nausea/Vomiting: Denies RUQ Epigastric Pain: Denies Datetime: 01/02/2019 11:04 Analgesics/Sedatives: Fentanyl (mcg) @ 50 Datetime: 01/02/2019 06:07 Antibiotics: Other Antibiotic @ Datetime: 01/02/2019 06:00 Unit Routine: Medications
--- NOTE | 2019-01-13 13:11 | DISCHARGE SUMMARY ---
Physician: Christiano Sun MD DATE OF ADMISSION: 01/03/2019 DATE OF DISCHARGE: 01/05/2019 ADMISSION DIAGNOSES 1. A 28-year-old G2, P0, AB1 female, estimated date of conception 01/08/2019, 39.0 weeks. 2. Status post appendectomy. 3. Wound infection. DISCHARGE DIAGNOSES 1. A 28-year-old G2, P0, AB1 female, estimated date of conception 01/08/2019, 39.0 weeks. 2. Status post appendectomy. 3. Wound infection. 4. Delivery of live male , Apgars 8 and 9. PROCEDURES 1. Cervical ripening with Cervidil, then Roth bulb. 2. Pitocin augmentation. 3. Epidural. 4. Artificial rupture of membranes. 5. Spontaneous vaginal delivery. 6. Repair of first-degree laceration. PRESENTING HABITS: Patient is a 28-year-old G2, P0, AB1 female who presented at 39 weeks for inducti on. She previously had an appendectomy done at roughly 36 weeks, which was retrocecal. Her postoper ative course was unremarkable with the exception of having contractions, but no cervical change. She was noted to be group B strep positive. Her wound grew out Pseudomonas, which was sensitive to Augm entin. She was rubella immune and her blood type is A positive. LABORATORIES: CBC on admission showed a white count of 8.6, hemoglobin 9.8, hematocrit 30.9, platele ts were 297. HOSPITAL COURSE: Patient was admitted. She was initially started on Cervidil for cervical ripening; however, after the following day, she had not shown an appreciable change. A Cook catheter was plac ed with 60 mL initially being placed in the uterine balloon. She did not dilate quickly. She eventu ally did reach 6 cm. She had an epidural placed. Her contractions were stimulated with Pitocin. Sh e was artificially ruptured in her membranes and progressed quite quickly after that. She reached co mplete at 6:10 on 01/03/2019, labored down and started pushing at 8 o'clock and at 9:26 a live male i nfant with Apgars 8 and 9, was delivered over a first-degree laceration occiput anterior. Placenta f ollows intact, inspected and noted to be. She had repair. Her estimated blood loss was 300 mL. Her course was unremarkable. She resumed regular diet. She tolerated her pain well. She wa s discharged to home on 01/05/2019. Pain was 3/10. DISCHARGE MEDICATIONS: Augmentin 5/125, Motrin 800 mg, Colace 100 mg and iron sulfate. DISCHARGE INSTRUCTIONS: : She was instructed to followup in the clinic in one week. She was to compl ete her antibiotics. TD: 01/13/2019 13:01
== END 2019-01-05 13:05 | disposition home or self-care (01) | DRG 863 ==
LOC: WFO 07:36 → FBP 07:38 → WFO 09:18 → FBP 09:19 → OBSVTOIN 01-03 00:01 → INTOOBSV 01-03 00:01 → OBSVTOIN 01-04 08:55 → UNDODISIN 01-05 13:05
PROVIDERS: ADMIT Obstetrics & Gynecology; ATTEND Obstetrics & Gynecology
PROC: 3E0P7VZ Introduction of Hormone into Female Reproductive, Via Natural or Artificial Opening (ICD-10-PCS; 2019-01-01)
PROC: 10907ZC Drainage of Amniotic Fluid, Therapeutic from Products of Conception, Via Natural or Artificial Opening (ICD-10-PCS; 2019-01-02)
PROC: 0U7C7ZZ Dilation of Cervix, Via Natural or Artificial Opening (ICD-10-PCS; 2019-01-02)
PROC: 10E0XZZ Delivery of Products of Conception, External Approach (ICD-10-PCS; principal; 2019-01-03)
PROC: 0HQ9XZZ Repair Perineum Skin, External Approach (ICD-10-PCS; 2019-01-03)
DX: T81.49XA Infection following a procedure, other surgical site, initial encounter (principal); O99.824 Streptococcus B carrier state complicating childbirth; Z37.0 Single live birth; B96.5 Pseudomonas (aeruginosa) (mallei) (pseudomallei) as the cause of diseases classified elsewhere; Y83.6 Removal of other organ (partial) (total) as the cause of abnormal reaction of the patient, or of later complication, without mention of misadventure at the time of the procedure; O70.0 First degree perineal laceration during delivery; Z3A.39 39 weeks gestation of pregnancy; Z87.19 Personal history of other diseases of the digestive system; Z87.891 Personal history of nicotine dependence
CPT/HCPCS: 59200; 85025; 96365; 96366; 96375; 96376